=== PATIENT | female | born 1945 | race Caucasian/White ===

== ENCOUNTER → 2021-04-22 14:49 | Outpatient (BNVA) | payer MEDICARE, OTHER, SELFPAY | PROVIDERS: Family Provider Nurse Practitioner; PCP Nurse Practitioner; Visit Provider Family Medicine | DX: R05.9 Cough, unspecified (principal); J90 Pleural effusion, not elsewhere classified; I51.7 Cardiomegaly | CPT/HCPCS: 71046 ==

== ENCOUNTER 2021-04-29 12:28 | Inpatient (IN) | payer MEDICARE, OTHER, SELFPAY ==
[2021-04-29] VITALS (9 sets, daily range): BP systolic 104–110; BP diastolic 61–75; PULSE 66–125; RESP 16–24; TEMP 36.2–37.1; O2SAT 92–96; BMI 19.3
--- NOTE | 2021-04-29 14:39 | W.ED.GENADLT ---
HPI - General Adult General: Chief complaint: Weakness Stated complaint: Loseing weight, cant keep anything down Time Seen by Provider: 04/29/21 14:19 History of Present Illness: Patient is a 76-year-old female with a history of recent Covid pneumonia and superimposed bacterial pneumonia who presents the emergency room at the request patient's primary care provider for concerns of dehydration, decreased p.o. intake worsening generalized weakness after mathieu Covid and pneumonia. Last week, patient was seen on Thursday in clinic and was diagnosed with bacterial pneumonia. Patient received 2 doses of ceftriaxone and completed course of outpatient p.o. antibiotics. Since then, patient has had increasing cough, fatigue and generalized weakness. Patient has not been to tolerate food other than liquid per . Patient has not had the energy to get out of bed to do anything else. Patient has no other focal points including chest pain, shortness of breath, abdominal pain, nausea/vomiting, diarrhea, melena/hematochezia, focal neurological complaints. Patient lost significant weight (5 lbs in the last week) because she could not tolerate PO. Onset: 2 weeks ago, worsening last 3 days Duration: 2 weeks Location:home Severity:moderate/severe Associated symptoms: Reports malaise; Deny chest pain, dyspnea, nausea, rash, palpitations or vomiting Review of Systems Const: Reports: change in weight, fatigue and malaise; Denies: fever(s) or chills Eyes: Denies: change in vision ENMT: Denies: mouth pain Card: Denies: chest pain or palpitations Resp: Reports: non-productive cough; Denies: dyspnea GI: Denies: abdominal pain, nausea, vomiting or diarrhea : Denies: dysuria Musc: Denies: extremity pain Skin/Breast: Denies: rash or new lesions Neuro: Denies: weakness in extremities Psych: Reports: other (Normal mood) Mahesh/Lymph: Denies: easy bruising PFSH ED PFSH: Medical History COVID Pneumonia Social History Smoking and tobacco status: never smoked Alcohol intake: never Substance/Drug Use: never Physical Exam Const: COMMON NORMALS: alert HENMT: COMMON NORMALS: atraumatic HEAD & SCALP: atraumatic MOUTH: moist mucous membranes abnormal Eye: COMMON NORMALS: EOMs intact bilaterally and conjunctivae normal CONJUNCTIVA: Yes conjunctivae normal Neck/C-Spine: COMMON NORMALS: full ROM and supple Resp: COMMON NORMALS: normal respiratory effort OTHER: +coarse breath sounds b/l Cardio: RATE: tachycardic GI: COMMON NORMALS: Soft to palpation and non-tender PALPATION: Yes Soft to palpation Extremity: COMMON NORMALS: full ROM Neuro: SENSORIUM/ORIENTATION: Yes alert MOTOR EXAM: No Abnormal motor strength present and Other motor observations present (no focal motor deficits) Psych: COMMON NORMALS: speech normal SPEECH: Yes normal speech MOOD & AFFECT: Yes euthymic mood Course Vital Signs: Vital signs: Vital Signs Temperature 98.7 F 04/29/21 20:00 Pulse Rate 114 H 04/29/21 20:00 Respiratory Rate 16 04/29/21 20:00 Blood Pressure 106/75 04/29/21 20:00 Pulse Oximetry 95 04/29/21 20:00 MDM - General Adult Medical Decision Making 76-year-old female with history of Covid pneumonia, superimposed bacterial pneumonia presenting to the emergency room with dehydration, weakness, weight loss, inability to tolerate p.o. On exam, patient is noted to be tachycardic to the 120s appears dry on exam. Patient had a white count of 19.8. X-rays consistent with possible pneumonia. Patient received vancomycin, cefepime and azithromycin. Heart rate appears to be improved on reassessment. Patient is noted to be satting at 90 to 93% on room air. Given concerns for dehydration, pneumonia, new leukocytosis, recent weight loss, patient will be admitted to hospital. Disposition: admission Lab Data : 04/29/21 15:05 04/29/21 15:05 Radiology Impressions Chest X-Ray 04/29/21 15:39 IMPRESSION: 1. Bilateral perihilar and right lower lobe pneumonia increased since prior examination. 2. Otherwise negative examination. Chest CTA 04/29/21 16:01 IMPRESSION: 1. Positive for pulmonary embolism as described. 2. Bilateral lower lobe pleural effusions. 3. Bilateral pneumonia in the left upper lobe, right lower lobe, and right perihilar region. 4. Apical pleural thickening right lung. 5. Negative for right heart strain. ADDENDUM: 04/29/21 [id number] Findings were discussed with BRYCE BETTS at 04/29/2021 5:31 PM SALES DEVELOPMENT EXECUTIVE. Laboratory Results WBC 19.8 10^3/uL (4.0-10.0) H 04/29/21 15:05 RBC 4.06 10^6/uL (4.1-5.3) L 04/29/21 15:05 Hgb 12.6 g/dL (11.5-15.3) 04/29/21 15:05 Hct 39.2 % (37.0-47.0) 04/29/21 15:05 MCV 96.6 fl (81-99) 04/29/21 15:05 MCH 31.0 pg (28.0-34.0) 04/29/21 15:05 MCHC 32.1 g/dL (30.0-36.0) 04/29/21 15:05 RDW 14.6 % (12.1-15.1) 04/29/21 15:05 Plt Count 204 10^3/cmm (130-400) 04/29/21 15:05 MPV 9.6 fL (7.4-10.4) 04/29/21 15:05 Neut % (Auto) 89.6 % 04/29/21 15:05 Lymph % (Auto) 2.5 % 04/29/21 15:05 [place] % (Auto) 7.0 % 04/29/21 15:05 Eos % (Auto) 0.1 % 04/29/21 15:05 Baso % (Auto) 0.1 % 04/29/21 15:05 Neut # (Auto) 17.73 10^3/uL (1.8-7.7) H 04/29/21 15:05 Lymph # (Auto) 0.5 10^3/uL (0.8-4.8) L 04/29/21 15:05 [place] # (Auto) 1.4 10^3/uL (0.2-0.9) H 04/29/21 15:05 Eos # (Auto) 0.0 10^3/uL (0.0-0.8) 04/29/21 15:05 Baso # (Auto) 0.0 10^3/uL (0.0-0.1) 04/29/21 15:05 Nucleated RBC % (auto) 0 % 04/29/21 15:05 Nucleated RBCs # 0.0 /100WBC 04/29/21 15:05 Sodium 142 mmol/L (136-145) 04/29/21 15:05 Potassium 3.9 mmol/L (3.5-5.1) 04/29/21 15:05 Chloride 103 mmol/L (98-107) 04/29/21 15:05 Carbon Dioxide 23 mmol/L (22-29) 04/29/21 15:05 Anion Gap 19.9 (5-19) H 04/29/21 15:05 BUN 27 mg/dL (8-23) H 04/29/21 15:05 Creatinine 0.7 mg/dL (0.5-0.9) 04/29/21 15:05 GFR Calculation Not Reportable 04/29/21 15:05 Glucose 98 mg/dL (65-115) 04/29/21 15:05 Calculated Osmolality 299 mOsm/kg (285-295) H 04/29/21 15:05 Calcium 9.4 mg/dL (8.5-10.5) 04/29/21 15:05 Total Bilirubin 1.0 mg/dL (0.15-1.2) 04/29/21 15:05 AST 71 U/L (0-32) H 04/29/21 15:05 ALT 88 U/L (0-33) H 04/29/21 15:05 Alkaline Phosphatase 168 IU/L (35-105) H 04/29/21 15:05 C-Reactive Protein 144.0 mg/L (0.0-4.9) H 04/29/21 15:05 Total Protein 6.6 g/dL (6.6-8.7) 04/29/21 15:05 Albumin 3.6 g/dL (3.5-5.2) 04/29/21 15:05 Globulin 3.0 g/dL (1.3-4.6) 04/29/21 15:05 Lipase 34 U/L (13-60) 04/29/21 15:05 Procalcitonin 0.43 ng/mL (0-0.5) 04/29/21 15:05 Discharge Plan Discharge Patient Disposition: Admitted As Inpatient Admit Provider: Binu Barriga Clinical Impression: Pneumonia, Dehydration Condition: Stable Coding Level of Care Code ED Pathologist for Chg Fwd Exam Comprehensive
[2021-04-29] MEDS: lidocaine 2% viscous 15 ML, aluminum-mag hydrox-simethicon 30 ML, sucralfate oral liq 1 GM PO (15:09)
[2021-04-29] MEDS: sodium chloride 0.9% 1,000 ML 999 ML IV (15:10)
[2021-04-29] MEDS: acetaminophen 500 mg Tablet 1000 MG PO (15:13)
[2021-04-29 15:37] LABS: Basophils % 0.1 %; Eosinophils % 0.1 %; Hematocrit 39.2 % (37.0-47.0); Hemoglobin 12.6 g/dL (11.5-15.3); Lymphocytes # 0.5 10^3/uL (0.8-4.8); Lymphocytes % 2.5 %; Mean Corpuscular HGB Conc 32.1 g/dL (30.0-36.0); Mean Corpuscular Volume 96.6 fl (81-99); Mean Platelet Volume 9.6 fL (7.4-10.4); Monocytes # 1.4 10^3/uL (0.2-0.9); Neutrophils # 17.73 10^3/uL (1.8-7.7); Neutrophils % 89.6 %; Nucleated Red Blood Cells % 0 %; Platelet Count 204 10^3/cmm (130-400); Red Blood Count 4.06 10^6/uL (4.1-5.3); Red Cell Distribution Width 14.6 % (12.1-15.1); White Blood Count 19.8 10^3/uL (4.0-10.0)
--- NOTE | 2021-04-29 15:39 | XRR_ITS ---
PROCEDURE INFORMATION: Exam: XR Chest Exam date and time: 04/29/2021 3:39 PM Age: 76 years old Clinical indication: Condition or disease; Lung condition and disease; Patient HX: --pneumonia for 3 weeks; Additional info: Possible pna TECHNIQUE: Imaging protocol: XR of the chest. Views: 1 view. COMPARISON: CR XR chest 2V* [id number] 04/22/2021 3:05 PM FINDINGS: Lungs: Parenchymal consolidations are noted in the bilateral perihilar region and in the right lower lobe corresponding to pneumonia. These findings have increased since prior examination. Pleural spaces: Unremarkable. No pleural effusion. No pneumothorax. Heart/Mediastinum: Unremarkable. No cardiomegaly. Bones/joints: Unremarkable. XR/XR chest 1V portable [id number] IMPRESSION: 1. Bilateral perihilar and right lower lobe pneumonia increased since prior examination. 2. Otherwise negative examination.
[2021-04-29] MEDS: cefepime 1,000 MG in sodium chloride 0.9% (plus) 50 ML 100 MG IV (15:46)
[2021-04-29 16:01] LABS: Alanine Aminotransferase 88 U/L (0-33); Albumin Level 3.6 g/dL (3.5-5.2); Alkaline Phosphatase 168 IU/L (35-105); Anion Gap 19.9 (5-19); Aspartate Amino Transferase 71 U/L (0-32); Blood Urea Nitrogen 27 mg/dL (8-23); Calcium 9.4 mg/dL (8.5-10.5); Carbon Dioxide 23 mmol/L (22-29); Chloride 103 mmol/L (98-107); Glucose 98 mg/dL (65-115); Lipase 34 U/L (13-60); Osmolality Calculated 299 mOsm/kg (285-295); Potassium 3.9 mmol/L (3.5-5.1); Sodium 142 mmol/L (136-145); Total Protein 6.6 g/dL (6.6-8.7)
--- NOTE | 2021-04-29 16:01 | CTR_ITS ---
PROCEDURE INFORMATION: Exam: CTA Chest With Contrast Exam date and time: 04/29/2021 4:01 PM Age: 76 years old Clinical indication: Shortness of breath; Patient HX: Hypoxia; Additional info: Eval for pe TECHNIQUE: Imaging protocol: Computed tomographic angiography of the chest with contrast. 3D rendering (Not supervised by radiologist): MIP and/or 3D reconstructed images were created by the technologist. Radiation optimization: All CT scans at this facility use at least one of these dose optimization techniques: automated exposure control; mA and/or kV adjustment per patient size (includes targeted exams where dose is matched to clinical indication); or iterative reconstruction. Contrast material: OMNI 350; Contrast volume: 73 ml; Contrast route: INTRAVENOUS (IV); COMPARISON: CR XR chest 1V portable [id number] 04/29/2021 3:49 PM RADIATION DOSE METRICS: Total DLP (mGy-cm): 377.59 FINDINGS: Pulmonary arteries: There is optimal contrast density within the pulmonary arteries. The examination shows multiple small filling defects within the pulmonary arteries corresponding to positive diagnosis for pulmonary embolism. Aorta: Unremarkable. No aortic aneurysm. No aortic dissection. Lungs: Parenchymal densities seen in the left upper lobe, right lower lobe, and right upper lobe these findings are consistent with alveolar pneumonia. Pleural spaces: There is right side apical pleural thickening No pneumothorax. Bilateral lower lobe pleural effusions. effusion. Heart: Negative for right heart strain. No cardiomegaly. No pericardial effusion. Lymph nodes: Unremarkable. No enlarged lymph nodes. Bones/joints: There is osteopenia and osteoarthritis. No acute fracture. Soft tissues: Unremarkable. CT/CT angio chest PE protcl [id number] IMPRESSION: 1. Positive for pulmonary embolism as described. 2. Bilateral lower lobe pleural effusions. 3. Bilateral pneumonia in the left upper lobe, right lower lobe, and right perihilar region. 4. Apical pleural thickening right lung. 5. Negative for right heart strain.
[2021-04-29 16:07] LABS: Procalcitonin 0.43 ng/mL (0-0.5)
[2021-04-29] MEDS: azithromycin 500 MG in sodium chloride 0.9% 250 ML 250 MG IV (16:07)
[2021-04-29] MEDS: vancomycin 1,000 MG in sodium chloride 0.9% 250 ML 250 MG IV (16:34)
[2021-04-29] MEDS: iohexol 350 mg/mL 100 mL Btl IV (16:49)
--- NOTE | 2021-04-29 18:13 | P.HP_ITS ---
Providers/Chief Complaint Admitting Physician: Binu Barriga Primary Care Provider: ZACK Sanders Chief Complaint: Loseing weight, cant keep anything down History of Present Illness Pleasant 76-year-old lady is referred to the hospital by her primary provider after not improving from pneumonia despite outpatient course of antibiotic treatment with cefdinir. She has been still short of breath, fatigued, with poor oral intake. Reports she was tested for COVID-19 at that onset of her illness which was then negative. On presentation here she was found tachycardic, heart rate up to 120s. Denies chest pain or pressure. Denies significant cough. No hemoptysis. Noted leukocytosis 19.8 with neutrophilic predominance. Afebrile. Mild elevation AST, ALT 71, 88 respectively. Alk phos mildly elevated at 168. CRP abnormal at 244. Chest x-ray was obtained followed by CTA with finding of bilateral small multiple PEs bilateral lower lobe pleural effusions, bilateral pneumonia and left upper lobe, right lower lobe and right perihilar region. Apical pleural thickening at right lung. No appearance of right heart strain. Review of Systems Const: Reports: change in appetite, fatigue and malaise; Denies: fever(s) Eyes: Denies: change in vision or eye redness ENMT: Denies: throat pain, oral sores or ear or mastoid pain Card: Denies: chest pain, edema, pre-syncope or dyspnea on exertion Resp: Reports: dyspnea; Denies: productive cough, change in phlegm color or hemoptysis GI: Reports: nausea; Denies: abdominal pain, vomiting, diarrhea, constipation, hematochezia or melena : Denies: flank pain, urinary frequency or hematuria Musc: Denies: back pain, joint swelling or joint redness Skin/Breast: Denies: rash, sores or new lesions Neuro: Denies: headache(s), numbness in extremities, weakness in extremities, dizziness, confusion or seizure-like activity Endo: Denies: polydipsia Mahesh/Lymph: Denies: easy bleeding All/Imm: Denies: throat swelling Medications/Allergies Home Medications Medication Instructions Recorded Confirmed Last Taken Type naproxen 220 mg-pseudoephedrine 1 tab PO BID 03/11/21 04/29/21 Unknown History 120 mg ER tablet, extend release,12 hr (Aleve-D Sinus and Cold) cefdinir 300 mg capsule 300 mg PO BID #28 cap 04/22/21 04/29/21 04/28/21 Rx Allergies Allergy/AdvReac Type Severity Reaction Status Date / Time No Known Allergies Allergy Verified 04/29/21 14:37 PFSH Acute PFSH: Medical History COVID Pneumonia Social History Smoking and tobacco status: never smoked Alcohol intake: never Substance/Drug Use: never Vitals/I&O/Wt Last Vital Signs Temp 97.2 F L 04/29/21 12:46 Pulse 77 04/29/21 17:57 Resp 18 04/29/21 17:00 BP 110/71 04/29/21 17:57 Pulse Ox 96 04/29/21 17:57 Weight last 48 hrs Weight 52.73 kg Physical Exam Const: COMMON NORMALS: no acute distress and patient oriented x3 HENMT: COMMON NORMALS: oropharynx normal Neck/C-Spine: COMMON NORMALS: no JVD Resp: COMMON NORMALS: normal respiratory effort and clear to auscultation bilaterally AUSCULTATION: clear to auscultation bilaterally Cardio: COMMON NORMALS: no JVD, regular rhythm, S1 normal heart sound present, S2 normal heart sound present and No murmurs present (Cardio) RHYTHM: regular rhythm HEART SOUNDS: S1 normal heart sound present and S2 normal heart sound present GI: COMMON NORMALS: Normal to inspection, nondistended, normoactive bowel sounds present, Soft to palpation and non-tender PALPATION: Yes Soft to palpation Extremity: COMMON NORMALS: no joint enlargement and no pedal edema Neuro: COMMON NORMALS: patient oriented x3 and moves all extremities Skin: COMMON NORMALS: no rashes or lesions noted GENERAL SKIN EXAM: no yuniel hes or lesions noted Data : 04/29/21 15:05 04/29/21 15:05 A&P Assessment and plan (1) Pneumonia: With lack of response to outpatient treatment with cefdinir. Persistent pneumonia noted in left upper lobe, right lower lobe and right perihilar region. Obtain sputum culture, urine bacterial antigens. MRSA PCR. Viral PCR pending for COVID-19, influenza. Blood cultures requested. Continue with broad coverage with cefepime, vancomycin. Follow-up microbiologic studies. Reports fatigue, functional decline. 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 PT assessment. Status: Acute (2) Pulmonary emboli: Started on therapeutic Lovenox. Continue. Status: Acute (3) UTI (urinary tract infection): Fatigue may partially be explained by UTI as well, 10-15 WBCs. 0-4 squamous epithelial cells. Follow-up urine culture. Continue cefepime. Status: Acute Plan Poor oral intake: Nausea, possibly secondary to pneumonia, follow-up also COVID- 19 PCR. She appears to also been taking naproxen. Discontinue. Start PPI. Encourage oral intake. Regular diet. Check TSH. Discussed with her and her . Attestations Medical Necessity Statement*: Place in observation for assessment management of pneumonia not responsive to outpatient treatment, PE. Coding Level of Care Code Acute Combine Driver for [place] Wei Diagnoses Pneumonia J18.9 Pulmonary emboli I26.99 UTI (urinary tract infection) N39.0
[2021-04-29 18:19] LABS: Blood Urine 2+ (Negative); Glucose Urine UA Norm (Normal); Ketones Urine 2+ (Negative); Nitrate Urine Negative (Negative); Protein Urine 1+ (Negative); Specific Gravity, Urine 1.015 (1.005-1.030); Urine Appearance Clear (CLEAR); Urine Color Yellow (Yellow); pH Urine 5 (5-7)
[2021-04-29 18:20] LABS: Add Urine Culture? No; Add Urine Microscopic? YES; Bacteria Urine TRACE /hpf; Bilirubin Urine Neg (Negative); Hyaline Casts Urine 0-4 /lpf; Leukocyte Esterase Urine Negative (Negative); Mucus Urine TRACE /hpf; RBC Urine RARE /hpf (0-2); Squamous Epithelial Cell Urine 0-4 /hpf (0-5); Urobilinogen Urine Norm (Negative)
[2021-04-29 19:00] LABS: Adenovirus Not Detected (NOT DETECT); Chlamydia Pneumoniae Not Detected (NOT DETECT); Coronavirus 229E,HKU1,NL63,OC4 Not Detected (NOT DETECT); Human Metapneumovirus Not Detected (NOT DETECT); Human Rhinovirus/Enterovirus Not Detected (NOT DETECT); Influenza A Not Detected (NOT DETECT); Influenza A H1 Not Detected (NOT DETECT); Influenza A H1-2009 Not Detected (NOT DETECT); Influenza A H3 Not Detected (NOT DETECT); Influenza B Not Detected (NOT DETECT); Mycoplasma Pneumoniae Not Detected (NOT DETECT); Parainfluenza Virus Type 1 Not Detected (NOT DETECT); Parainfluenza Virus Type 2 Not Detected (NOT DETECT); Parainfluenza Virus Type 3 Not Detected (NOT DETECT); Parainfluenza Virus Type 4 Not Detected (NOT DETECT); Respiratory Syncytial Virus A Not Detected (NOT DETECT); Respiratory Syncytial Virus B Not Detected (NOT DETECT); SARS-COV-2 Not Detected (NOT DETECT)
[2021-04-29] MEDS: enoxaparin 60 mg/0.6 mL Syringe 50 MG SUBCUT (19:10)
[2021-04-29] MEDS: sodium chloride 0.9% 1,000 ML 100 ML IV (19:10)
[2021-04-29 21:47] LABS: Influenza A Not Detected (NOT DETECT); Influenza A H1 Not Detected (NOT DETECT); Influenza A H1-2009 Not Detected (NOT DETECT); Influenza A H3 Not Detected (NOT DETECT); Influenza B Not Detected (NOT DETECT); Results from Genmark
[2021-04-30] VITALS (7 sets, daily range): BP systolic 100–134; BP diastolic 66–90; PULSE 114–128; RESP 16–20; TEMP 36.4–37.1; O2SAT 90–97
[2021-04-30] MEDS: sodium chloride 0.9% 1,000 ML 100 ML IV ×2 (04:53→17:41)
[2021-04-30] MEDS: cefepime 1,000 MG in sodium chloride 0.9% (plus) 50 ML 100 MG IV ×2 (05:00→17:42)
[2021-04-30] MEDS: enoxaparin 60 mg/0.6 mL Syringe 50 MG SUBCUT ×2 (05:00→17:41)
[2021-04-30 05:15] LABS: Basophils % 0.1 %; Hematocrit 37.9 % (37.0-47.0); Hemoglobin 11.8 g/dL (11.5-15.3); Lymphocytes # 0.4 10^3/uL (0.8-4.8); Lymphocytes % 2.5 %; Mean Corpuscular HGB Conc 31.1 g/dL (30.0-36.0); Mean Corpuscular Hemoglobin 30.5 pg (28.0-34.0); Mean Corpuscular Volume 97.9 fl (81-99); Mean Platelet Volume 9.5 fL (7.4-10.4); Monocytes # 1.4 10^3/uL (0.2-0.9); Monocytes % 8.4 %; Neutrophils # 14.94 10^3/uL (1.8-7.7); Neutrophils % 88.4 %; Nucleated Red Blood Cells % 0 %; Platelet Count 217 10^3/cmm (130-400); Red Blood Count 3.87 10^6/uL (4.1-5.3); Red Cell Distribution Width 14.7 % (12.1-15.1); White Blood Count 16.9 10^3/uL (4.0-10.0)
[2021-04-30 05:48] LABS: Anion Gap 18.6 (5-19); Blood Urea Nitrogen 22 mg/dL (8-23); Calcium 8.5 mg/dL (8.5-10.5); Carbon Dioxide 18 mmol/L (22-29); Chloride 110 mmol/L (98-107); Glucose 134 mg/dL (65-115); Osmolality Calculated 301 mOsm/kg (285-295); Potassium 3.6 mmol/L (3.5-5.1); Sodium 143 mmol/L (136-145); Thyroid Stimulating Hormone 1.01 uIU/mL (0.27-4.20)
--- NOTE | 2021-04-30 08:43 | ECG_ITS ---
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 Measurements Intervals [place] Rate: 126 P: 42 CA: 141 QRS: -19 QRSD: 129 T: 76 QT: 324 QTc: 470 Interpretive Statements SINUS TACHYCARDIA LEFT BUNDLE BRANCH BLOCK [120+ ms QRS DURATION, 80+ ms Q/S IN V1/V2, 85+ ms R IN I/aVL/V5/V6] No previous ECG available for comparison Electronically Signed On 05-01-2021 5:51:49 EXECUTIVE ASSISTANT by Hannah Salas M.D. [id number]
[2021-04-30] MEDS: pantoprazole DR 40 mg Tablet PO (09:56)
--- NOTE | 2021-04-30 10:42 | CT_ITS ---
WS: [id number] CT HEAD TECHNIQUE: Noncontrast CT of the head obtained from the skullbase to the vertex. CLINICAL INFORMATION: AMS, on anticoagulation COMPARISON: None. DLP: 1406.[address] scans at [facility] use at least one of these dose optimization techniques: automated e xposure control; mA and/or kV adjustment per patient size (includes targeted exams where dose is matc hed to clinical indication); or iterative reconstruction. FINDINGS: No evidence of intracranial hemorrhage or mass effect. Ventricular system and basal cisterns are nicholas nt. Moderate small vessel changes with moderate parenchymal volume loss. No extra-axial fluid collect ions. No evidence of mass or mass effect. Normal valente-white differentiation. Paranasal sinuses and mastoid air cells are well aerated. .Normal visualized soft tissues. CT/CT head wo con* [id number] IMPRESSION: 1. No evidence of intracranial hemorrhage or mass effect. 2. Moderate small vessel changes. Moderate parenchymal volume loss. 3. No acute intracranial findings.
[2021-04-30] MEDS: vancomycin 1,000 MG in sodium chloride 0.9% 250 ML 250 MG IV (16:34)
--- NOTE | 2021-04-30 19:22 | PC.NURSE ---
i reported low temp 97.5 and high pulse 123 to nurse
[2021-04-30] MEDS: acetaminophen 325 mg Tablet 650 MG PO (19:58)
--- NOTE | 2021-04-30 20:36 | PM.PN ---
Subjective Subjective: She states she has been feeling grumpy today. She has been wanting to go home. Her feels she has not been entirely acting like herself. Vitals/I&O/Wt Last Vital Signs Temp 97.5 F L 04/30/21 19:22 Pulse 123 H 04/30/21 19:22 Resp 16 04/30/21 19:22 BP 118/84 04/30/21 19:22 Pulse Ox 97 04/30/21 19:22 04/30/21 04/30/21 04/30/21 06:59 14:59 22:59 Intake Total 1021.667 / 8298.559 8851 / 1600 970 / 2570 Output Total 100 / 100 Balance 1021.667 / 8120.972 9729 / 1600 870 / 2470 Weight last 48 hrs Weight 54.159 kg Weight 52.73 kg Weight 52.73 kg Physical Exam Narrative: at bedside. Const: COMMON NORMALS: no acute distress and patient oriented x3 HENMT: COMMON NORMALS: oropharynx normal Neck/C-Spine: COMMON NORMALS: no JVD Resp: COMMON NORMALS: normal respiratory effort and clear to auscultation bilaterally AUSCULTATION: clear to auscultation bilaterally Cardio: COMMON NORMALS: no JVD, regular rhythm, S1 normal heart sound present, S2 normal heart sound present and No murmurs present (Cardio) RHYTHM: regular rhythm HEART SOUNDS: S1 normal heart sound present and S2 normal heart sound present GI: COMMON NORMALS: Normal to inspection, nondistended, normoactive bowel sounds present, Soft to palpation and non-tender PALPATION: Yes Soft to palpation Extremity: COMMON NORMALS: no joint enlargement and no pedal edema Neuro: COMMON NORMALS: patient oriented x3 and moves all extremities Skin: COMMON NORMALS: no rashes or lesions noted GENERAL SKIN EXAM: no rashes or lesions noted Data : 04/30/21 04:08 04/30/21 04:08 Micro: Microbiology 04/29/21 20:00 Blood Culture - Preliminary Blood NEGATIVE TO DATE 04/29/21 19:58 Blood Culture - Preliminary Blood NEGATIVE TO DATE 04/29/21 19:20 MRSA Culture - Final Nose 04/29/21 17:56 Legionella Urinary Antigen - Final Urine,Voided Bacterial Antigens - Final A&P Assessment and plan (1) Acute encephalopathy: noted she was not entirely acting like herself today. Noted episode of lethargy today. CT head performed, no bleeding. UA suggestive of possible UTI. Requested urine culture which for some reason did not reflex. Continue empiric antibiotics for pneumonia, UTI. Status: Acute (2) Pneumonia: Continue cefepime, vancomycin. Urine bacterial antigens including Legionella, MRSA PCR negative. Obtain sputum culture Viral PCR negative for COVID-19, influenza. Blood cultures requested. Continue with broad coverage with cefepime, vancomycin. Follow-up microbiologic studies. Reports fatigue, functional decline. 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 PT assessment. Status: Acute (3) Pulmonary emboli: Continue Lovenox. Transition to p.o. anticoagulation at discharge. Status: Acute (4) UTI (urinary tract infection): Requested urine culture which did not reflex from UA. Continue cefepime. Status: Acute Plan Poor oral intake: Nausea, possibly secondary to pneumonia, follow-up also COVID-19 PCR. She appears to also been taking naproxen. Discontinue. Start PPI. Encourage oral intake. Regular diet. Check TSH. Discussed with her and her at bedside Attestations Medical Necessity Statement*: Continue admission for assessment management of acute encephalopathy, pneumonia, UTI. Coding Level of Care Code Acute Statement Processor for [place] Wei Diagnoses Pneumonia J18.9 Pulmonary emboli I26.99 UTI (urinary tract infection) N39.0 Acute encephalopathy G93.40
[2021-05-01] VITALS (10 sets, daily range): BP systolic 112–126; BP diastolic 67–84; PULSE 115–131; RESP 13–24; TEMP 36.4–36.6; O2SAT 92–98
--- NOTE | 2021-05-01 00:23 | PC.NURSE ---
i reported high pulse 131 to nurse
--- NOTE | 2021-05-01 04:15 | PC.NURSE ---
i reported high pulse 121 to nurse
[2021-05-01 05:19] LABS: Basophils % 0.1 %; Hematocrit 37.7 % (37.0-47.0); Hemoglobin 11.8 g/dL (11.5-15.3); Lymphocytes # 0.7 10^3/uL (0.8-4.8); Lymphocytes % 3.8 %; Mean Corpuscular HGB Conc 31.3 g/dL (30.0-36.0); Mean Corpuscular Hemoglobin 30.8 pg (28.0-34.0); Mean Corpuscular Volume 98.4 fl (81-99); Mean Platelet Volume 9.7 fL (7.4-10.4); Monocytes # 1.5 10^3/uL (0.2-0.9); Monocytes % 8.3 %; Neutrophils # 15.86 10^3/uL (1.8-7.7); Neutrophils % 87.2 %; Nucleated Red Blood Cells % 0 %; Platelet Count 222 10^3/cmm (130-400); Red Blood Count 3.83 10^6/uL (4.1-5.3); Red Cell Distribution Width 15.1 % (12.1-15.1); White Blood Count 18.2 10^3/uL (4.0-10.0)
[2021-05-01] MEDS: cefepime 1,000 MG in sodium chloride 0.9% (plus) 50 ML 100 MG IV ×2 (05:37→18:02)
[2021-05-01] MEDS: enoxaparin 60 mg/0.6 mL Syringe 50 MG SUBCUT ×2 (05:38→18:02)
[2021-05-01 05:48] LABS: Alanine Aminotransferase 57 U/L (0-33); Albumin Level 3.1 g/dL (3.5-5.2); Alkaline Phosphatase 129 IU/L (35-105); Anion Gap 21.2 (5-19); Aspartate Amino Transferase 34 U/L (0-32); Blood Urea Nitrogen 30 mg/dL (8-23); Calcium 8.5 mg/dL (8.5-10.5); Carbon Dioxide 16 mmol/L (22-29); Chloride 112 mmol/L (98-107); Globulin 3.3 g/dL (1.3-4.6); Glucose 128 mg/dL (65-115); Osmolality Calculated 308 mOsm/kg (285-295); Potassium 4.2 mmol/L (3.5-5.1); Sodium 145 mmol/L (136-145); Total Bilirubin 0.7 mg/dL (0.15-1.2); Total Protein 6.4 g/dL (6.6-8.7)
--- NOTE | 2021-05-01 09:38 | ECG_ITS ---
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 Measurements Intervals [place] Rate: 126 P: 54 SD: 138 QRS: -8 QRSD: 132 T: 88 QT: 322 QTc: 466 Interpretive Statements SINUS TACHYCARDIA LEFT BUNDLE BRANCH BLOCK [120+ ms QRS DURATION, 80+ ms Q/S IN V1/V2, 85+ ms R IN I/aVL/V5/V6] Compared to ECG 04/30/2021 09:08:34 No significant changes Electronically Signed On 05-01-2021 16:05:05 AIR/OCEAN EXPORT CLERK by Daryl Sosa M.D. [id number]
--- NOTE | 2021-05-01 10:06 | PC.CHAP ---
Pastoral Care Encounter/Spiritual Assessment Type of Contact [] Declined cement handler visit [] Patient/Family/Request visit [] Outpatient visit [] Follow-up visit [] Physician referral [] Code/Alert [x] Routine visit [] Staff referral [] Actively dying [] Patient sleeping [] Family support [] [] Out of room [] Palliative care [] [] Receiving care in room [] Pre-surgical visit [] Trauma [] Long length of stay [] ICU visit [] Other: Relational/Emotional Strength [] Patient feels connected with others/family/visitors/staff [] Distress [] Loneliness/isolation [] Abandonment Spirituality of Patient [] Person of Ragini [] Attends Restorationist of their Ragini [] Believes in Prayer [] Reads Bible or Rastafari materials [] There are Spiritual issues to be addressed Manager Helpdesk Interventions [] Prayer [] Active listening [] Non-anxious presence [] Spiritual/emotional support [] Crisis/trauma care [] Spiritual counseling [] Bereavement support [] Provided bereavement packet [] Provided Bible/devotional materials [] Provided toy/stuffed animal, coloring book to patient or family member [] Provided Communion [] Anointing/[place] [] Salvation [] Completed spiritual assessment [] Other: Impact on Illness or Injury [] Angry [] Fearful [] Anxious [] Often cries [] Exhaustion [] Unable to work [] Unable to attend samaritan [] Unable to walk/stand [] Unable to read [] Unable to drive [] Unable to eat/drink [] Unable to sleep [] Unable to be with family [] Patient intubated [] Other: Summary Time spent with patient
[2021-05-01] MEDS: sodium chloride 0.9% 1,000 ML 100 ML IV ×2 (11:10→21:36)
[2021-05-01 16:45] LABS: Vancomycin Trough 9.1 ug/mL (10-15)
[2021-05-01] MEDS: vancomycin 1,000 MG in sodium chloride 0.9% 250 ML 250 MG IV (17:06)
--- NOTE | 2021-05-01 19:10 | PC.NURSE ---
i reported high pulse 123 and high reps 24 to nurse
[2021-05-01] MEDS: acetaminophen 325 mg Tablet 650 MG PO (21:30)
--- NOTE | 2021-05-01 21:46 | P.PN_ITS ---
Subjective Subjective: Overall she is not feeling very well, she is coughing, feels congested. Tachypnea and tachycardia are noted. still finds her to have confusion compared to baseline. Noted possible aspiration by her RN. Vitals/I&O/Wt Last Vital Signs Temp 97.9 F 05/01/21 19:09 Pulse 123 H 05/01/21 19:09 Resp 24 H 05/01/21 19:09 BP 121/80 05/01/21 19:09 Pulse Ox 98 05/01/21 19:09 05/01/21 05/01/21 05/01/21 06:59 14:59 22:59 Intake Total 1050 / 3620 260 / 260 1300 / 1560 Output Total 240 / 340 80 / 80 Balance 810 / 3280 260 / 260 1220 / 1480 Weight last 48 hrs Weight 59.738 kg Weight 54.159 kg Physical Exam Narrative: at bedside. Const: COMMON NORMALS: no acute distress and patient oriented x3 HENMT: COMMON NORMALS: oropharynx normal Neck/C-Spine: COMMON NORMALS: no JVD Resp: COMMON NORMALS: normal respiratory effort and clear to auscultation bilaterally AUSCULTATION: clear to auscultation bilaterally Cardio: COMMON NORMALS: no JVD, regular rhythm, S1 normal heart sound present, S2 normal heart sound present and No murmurs present (Cardio) RHYTHM: regular rhythm HEART SOUNDS: S1 normal heart sound present and S2 normal heart sound present GI: COMMON NORMALS: Normal to inspection, nondistended, normoactive bowel sounds present, Soft to palpation and non-tender PALPATION: Yes Soft to palpation Extremity: COMMON NORMALS: no joint enlargement and no pedal edema Neuro: COMMON NORMALS: patient oriented x3 and moves all extremities Skin: COMMON NORMALS: no rashes or lesions noted GENERAL SKIN EXAM: no rashes or lesions noted Data : 05/01/21 04:40 05/01/21 04:40 Micro: Microbiology 04/29/21 17:56 Urine Culture - Preliminary Urine,Clean Catch 04/29/21 20:00 Blood Culture - Preliminary Blood NEGATIVE TO DATE 04/29/21 19:58 Blood Culture - Preliminary Blood NEGATIVE TO DATE A&P Assessment and plan (1) Acute encephalopathy: Acute metabolic encephalopathy secondary to pneumonia, UTI, aspiration. noted she was not entirely acting like herself today. Noted episode of lethargy today. CT head performed, no bleeding. UA suggestive of possible UTI. Requested urine culture which for some reason did not reflex. Treat underlying conditions. Continue empiric antibiotics for pneumonia, UTI. Reorient. PT Status: Acute (2) Pneumonia: Also with possible aspiration, changed empirically to dysphagia diet with nectar thick liquids. Requested speech therapy evaluation. Continue cefepime, vancomycin. Urine bacterial antigens including Legionella, MRSA PCR negative. Obtain sputum culture Viral PCR negative for COVID-19, influenza. Blood cultures requested. Reports fatigue, functional decline. 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 PT. Status: Acute (3) Pulmonary emboli: Continue Lovenox. Transition to p.o. anticoagulation at discharge. Status: Acute (4) UTI (urinary tract infection): Requested urine culture which did not reflex from UA. Pending. Continue cefepime. Status: Acute Plan Poor oral intake: DC IVF. Nausea better. Negative COVID-19 PCR. She appears to also been taking naproxen. Discontinue. Continue PPI. Encourage oral intake. Normal TSH. Discussed with her and her at bedside Attestations Medical Necessity Statement*: Continue admission for assessment management of acute encephalopathy, UTI, pneumonia, aspiration. 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
--- NOTE | 2021-05-01 23:45 | PC.NURSE ---
i reported high puse 118 and high reps 20 to nurse
[2021-05-02 05:06] LABS: Basophils % 0.1 %; Hematocrit 42.1 % (37.0-47.0); Hemoglobin 12.3 g/dL (11.5-15.3); Lymphocytes # 0.6 10^3/uL (0.8-4.8); Lymphocytes % 3.1 %; Mean Corpuscular HGB Conc 29.2 g/dL (30.0-36.0); Mean Corpuscular Hemoglobin 30.4 pg (28.0-34.0); Mean Corpuscular Volume 104.2 fl (81-99); Mean Platelet Volume 9.8 fL (7.4-10.4); Monocytes # 1.6 10^3/uL (0.2-0.9); Monocytes % 7.8 %; Neutrophils # 18.08 10^3/uL (1.8-7.7); Neutrophils % 88.3 %; Nucleated Red Blood Cells % 0 %; Platelet Count 258 10^3/cmm (130-400); Red Blood Count 4.04 10^6/uL (4.1-5.3); Red Cell Distribution Width 15.3 % (12.1-15.1); White Blood Count 20.5 10^3/uL (4.0-10.0)
[2021-05-02 05:24] LABS: Alanine Aminotransferase 58 U/L (0-33); Albumin Level 3.3 g/dL (3.5-5.2); Alkaline Phosphatase 127 IU/L (35-105); Anion Gap 21.3 (5-19); Aspartate Amino Transferase 49 U/L (0-32); Blood Urea Nitrogen 38 mg/dL (8-23); Calcium 7.9 mg/dL (8.5-10.5); Carbon Dioxide 13 mmol/L (22-29); Chloride 115 mmol/L (98-107); Globulin 2.9 g/dL (1.3-4.6); Glucose 112 mg/dL (65-115); Osmolality Calculated 310 mOsm/kg (285-295); Potassium 4.3 mmol/L (3.5-5.1); Sodium 145 mmol/L (136-145); Total Bilirubin 0.9 mg/dL (0.15-1.2); Total Protein 6.2 g/dL (6.6-8.7)
[2021-05-02] MEDS: enoxaparin 60 mg/0.6 mL Syringe 50 MG SUBCUT ×2 (05:34→16:59)
[2021-05-02] MEDS: cefepime 1,000 MG in sodium chloride 0.9% (plus) 50 ML 100 MG IV ×2 (05:34→14:11)
[2021-05-02 07:13] VITALS: BP 94/64; PULSE 129; RESP 17; TEMP 36.4; O2SAT 93
--- NOTE | 2021-05-02 08:15 | XR_ITS ---
WS: [id number] Portable AP upright chest, 05/02/2021 Clinical Data: possible aspiration, pleural effusions Comparison: Portable chest, 04/29/2021. Findings: The diffuse bilateral pulmonary opacities show little change on the right but slight increa se in the left upper lobe. The heart remains enlarged. No nodules or masses are seen. There may be sm all pleural effusions. XR/XR chest 1V portable [id number] Impression: 1. Diffuse bilateral pulmonary opacities with an increase in the left upper lob e opacity. 2. Cardiomegaly and small pleural effusions.
[2021-05-02] MEDS: pantoprazole DR 40 mg Tablet PO (08:18)
--- NOTE | 2021-05-02 08:18 | CT_ITS ---
WS: [id number] CT ABDOMEN PELVIS TECHNIQUE: Noncontrast CT of the abdomen and pelvis with coronal and sagittal reformatted images. CLINICAL INFORMATION: UTI, sepsis COMPARISON: None. DLP: 605.[address] scans at [facility] use at least one of these dose optimization techniques: automated e xposure control; mA and/or kV adjustment per patient size (includes targeted exams where dose is matc hed to clinical indication); or iterative reconstruction. FINDINGS: Images degraded by motion and breathing artifact. Cardiomegaly. Small bilateral pleural effusions with compressive atelectasis in the lung bases. Patch y infiltrates and subsegmental atelectasis in the RIGHT middle lobe. Noncontrast liver is normal. Vicarious excretion of contrast in the gallbladder from prior contrast e nhanced studies. Normal visualized noncontrast pancreas. Noncontrast spleen appears normal. Small eso phageal hiatal hernia. Adrenal glands are normal. No hydronephrosis in either kidney. Normal caliber abdominal aorta. Aortic calcification. Sigmoid diverticulosis. No evidence of acute diverticulitis. No evidence of hig h-grade small or large bowel obstruction. No periaortic or pelvic lymphadenopathy. No inguinal lympha denopathy. Diffuse body wall anasarca. CT/CT kidney stone [id number] IMPRESSION: 1. Small bilateral pleural effusions with compressive atelectasis in the lung bases. Subsegmental atelectasis with partial consolidation RIGHT middle lobe. 2. Cardiomegaly. 3. Small esophageal hiatal hernia. 4. No hydronephrosis in either kidney. 5. Bladder appears normal. 6. Vicarious excretion of contrast in the gallbladder from recent contrast enh anced studies. 7. Diverticulosis. No evidence of acute diverticulitis. 8. Diffuse body wall anasarca. 9. No evidence of high-grade small or large bowel obstruction. Air-fluid level in the stomach.
[2021-05-02 12:00] VITALS: BP 116/78; PULSE 122; RESP 18; TEMP 36.7; O2SAT 96
[2021-05-02] MEDS: ondansetron 2 mg/ML SDV 2 mL 4 MG IVP (14:11)
[2021-05-02 16:00] VITALS: BP 101/64; PULSE 132; O2SAT 95
[2021-05-02] MEDS: vancomycin 1,000 MG in sodium chloride 0.9% 250 ML 250 MG IV (16:51)
--- NOTE | 2021-05-02 16:55 | PM.PN ---
Subjective Subjective: She does not really want to be in hospital, does not also feel much better. Not noted today to be coughing with food or drink. Having cough. Denies abdominal pain or discomfort. Vitals/I&O/Wt Last Vital Signs Temp 98.0 F 05/02/21 12:00 Pulse 122 H 05/02/21 12:00 Resp 18 05/02/21 12:00 BP 116/78 05/02/21 12:00 Pulse Ox 96 05/02/21 12:00 05/02/21 05/02/21 05/02/21 06:59 14:59 22:59 Intake Total 50 / 1726.667 270 / 270 Balance 50 / 1646.667 270 / 270 Weight last 48 hrs Weight 59.738 kg Physical Exam Narrative: and daughter at bedside. Const: GENERAL APPEARANCE: cooperative OTHER: Weak, but able to cough. HENMT: COMMON NORMALS: oropharynx normal Neck/C-Spine: COMMON NORMALS: no JVD Resp: COMMON NORMALS: normal respiratory effort and clear to auscultation bilaterally AUSCULTATION: clear to auscultation bilaterally Cardio: COMMON NORMALS: no JVD, regular rhythm, S1 normal heart sound present, S2 normal heart sound present and No murmurs present (Cardio) RATE: tachycardic RHYTHM: regular rhythm HEART SOUNDS: S1 normal heart sound present and S2 normal heart sound present GI: COMMON NORMALS: Normal to inspection, nondistended, normoactive bowel sounds present, Soft to palpation and non-tender PALPATION: Yes Soft to palpation Extremity: COMMON NORMALS: no joint enlargement and no pedal edema Neuro: COMMON NORMALS: moves all extremities Skin: COMMON NORMALS: no rashes or lesions noted GENERAL SKIN EXAM: no rashes or lesions noted Data : 05/02/21 04:21 05/02/21 04:21 Micro: Microbiology 04/29/21 17:56 Urine Culture - Final Urine,Clean Catch A&P Assessment and plan (1) Pneumonia: Sepsis with worsening leukocytosis, persistent tachycardia. Some tachycardia may be also contributed from PE, however, WBC count has been increasing, and she overall has not improved. Intermittent tachypnea, as well as some alteration in mental status. Noted worsening acidosis, anion gap up to 21.3. Bicarb 13. We will check lactic acid. Oxygenation so far has been maintained on 2 L nasal cannula. Possible aspiration, appreciated speech therapy follow-up, continue dysphagia diet with nectar thick liquids. Given persistent findings that are concerning for sepsis with initial UA suggestive of UTI additional assessment by CT abdomen pelvis did not find obstructive uropathy. Noted subsegmental atelectasis with partial consolidation right middle lobe. Cardiomegaly, small esophageal hiatal hernia. Vicarious excretion of contrast in gallbladder from recent contrast-enhanced studies. Diverticulosis. Diffuse body wall anasarca. No evidence of high-grade small or large bowel obstruction. Air-fluid level in the stomach. Chest x-ray with worsening infiltrate also in the left upper lobe. Initially cefepime dose increased to every 8 hours. Given lack of so far even partial response to cefepime we will switch to Primaxin. Continue vancomycin. Will add empiric coverage with caspofungin. Urine bacterial antigens including Legionella, MRSA PCR negative. Requested sputum culture Viral PCR negative for COVID-19, influenza. Blood cultures so far negative. Recently fatigue, functional decline. 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 PT. Status: Acute (2) Acute encephalopathy: Acute metabolic encephalopathy secondary to pneumonia, UTI, aspiration. As above. Reorient. Family has been here for her as well. Reorient. PT Status: Acute (3) Pulmonary emboli: Continue Lovenox. Transition to p.o. anticoagulation at discharge. Status: Acute (4) UTI (urinary tract infection): So far no growth on urine culture. No obstructive uropathy noted on CT. Antibiotic changed to Primaxin. Status: Acute Plan Poor oral intake: P.o. intake is tolerating. IVF stopped. Nausea better. Negative COVID-19 PCR. She appears to also been taking naproxen. Discontinue. Continue PPI. Encourage oral intake. Normal TSH. Discussed with her and her and daughter at bedside Attestations Medical Necessity Statement*: Continue admission for assessment management of sepsis, pneumonia, possible aspiration, PE, acute encephalopathy. 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
[2021-05-02 18:14] LABS: Lactate (Lactic Acid level) 2.3 mmol/L (0.5-2.2)
[2021-05-02] MEDS: acetaminophen 325 mg Tablet 650 MG PO (18:35)
[2021-05-02 19:35] VITALS: BP 99/68; PULSE 119; RESP 17; TEMP 36.7; O2SAT 94
--- NOTE | 2021-05-02 19:35 | PC.NURSE ---
i reported high pulse 114 to nurse
[2021-05-03] VITALS (8 sets, daily range): BP systolic 96–125; BP diastolic 61–81; PULSE 101–121; RESP 16–24; TEMP 36.4–36.7; O2SAT 90–96
--- NOTE | 2021-05-03 00:13 | PC.NURSE ---
i reported high pulse 116 to nurse
--- NOTE | 2021-05-03 03:40 | PC.NURSE ---
i reported high pulse 116 to nurse
[2021-05-03] MEDS: ondansetron 2 mg/ML SDV 2 mL 4 MG IVP (03:53)
[2021-05-03 05:11] LABS: Basophils % 0.1 %; Hematocrit 38.5 % (37.0-47.0); Hemoglobin 12.1 g/dL (11.5-15.3); Lymphocytes # 0.6 10^3/uL (0.8-4.8); Lymphocytes % 3.2 %; Mean Corpuscular HGB Conc 31.4 g/dL (30.0-36.0); Mean Corpuscular Hemoglobin 31.2 pg (28.0-34.0); Mean Corpuscular Volume 99.2 fl (81-99); Mean Platelet Volume 10.6 fL (7.4-10.4); Monocytes # 1.2 10^3/uL (0.2-0.9); Neutrophils # 17.77 10^3/uL (1.8-7.7); Neutrophils % 89.6 %; Nucleated Red Blood Cells # 0.1 /100WBC; Nucleated Red Blood Cells % 0.3 %; Platelet Count 222 10^3/cmm (130-400); Red Blood Count 3.88 10^6/uL (4.1-5.3); Red Cell Distribution Width 15.9 % (12.1-15.1); White Blood Count 19.8 10^3/uL (4.0-10.0)
[2021-05-03 05:22] LABS: Alanine Aminotransferase 84 U/L (0-33); Albumin Level 3.1 g/dL (3.5-5.2); Alkaline Phosphatase 137 IU/L (35-105); Aspartate Amino Transferase 132 U/L (0-32); Blood Urea Nitrogen 46 mg/dL (8-23); Calcium 7.9 mg/dL (8.5-10.5); Carbon Dioxide 16 mmol/L (22-29); Chloride 120 mmol/L (98-107); Globulin 2.5 g/dL (1.3-4.6); Glucose 127 mg/dL (65-115); Osmolality Calculated 321 mOsm/kg (285-295); Sodium 149 mmol/L (136-145); Total Bilirubin 0.6 mg/dL (0.15-1.2); Total Protein 5.6 g/dL (6.6-8.7)
[2021-05-03 05:33] LABS: Anion Gap 17.9 (5-19); Potassium 4.9 mmol/L (3.5-5.1)
[2021-05-03] MEDS: enoxaparin 60 mg/0.6 mL Syringe 50 MG SUBCUT ×2 (05:50→17:16)
[2021-05-03] MEDS: pantoprazole DR 40 mg Tablet PO (09:53)
[2021-05-03] MEDS: acetaminophen 325 mg Tablet 650 MG PO (09:53)
[2021-05-03] MEDS: lactated ringers 1,000 ML 30 ML IV (14:12)
--- NOTE | 2021-05-03 15:49 | PC.SOCIAL ---
IMM UPDATED IMM dated and initialed and copy given to family
[2021-05-03 16:18] LABS: Vancomycin Trough 14.7 ug/mL (10-15)
[2021-05-03] MEDS: vancomycin 1,000 MG in sodium chloride 0.9% 250 ML 250 MG IV (17:10)
--- NOTE | 2021-05-03 21:32 | PM.PN ---
Subjective Subjective: She does not feel any better today. Poor appetite., Reports she is confused. Some cough. Denies abdominal pain. Vitals/I&O/Wt Last Vital Signs Temp 97.5 F L 05/03/21 20:00 Pulse 117 H 05/03/21 20:00 Resp 24 H 05/03/21 20:00 BP 110/81 05/03/21 20:00 Pulse Ox 93 05/03/21 20:00 05/03/21 05/03/21 05/03/21 06:59 14:59 22:59 Intake Total 200 / 1130 220 / 220 745 / 965 Output Total 200 / 200 Balance 0 / 930 220 / 220 745 / 965 Weight last 48 hrs Weight 58.604 kg Physical Exam Narrative: and daughter at bedside. Const: COMMON NORMALS: no acute distress GENERAL APPEARANCE: cooperative ORIENTATION/CONSCIOUSNESS: Yes awake OTHER: Weak, but able to cough. HENMT: COMMON NORMALS: oropharynx normal Neck/C-Spine: COMMON NORMALS: no JVD Resp: COMMON NORMALS: normal respiratory effort and clear to auscultation bilaterally AUSCULTATION: clear to auscultation bilaterally Cardio: COMMON NORMALS: no JVD, regular rhythm, S1 normal heart sound present, S2 normal heart sound present and No murmurs present (Cardio) RATE: tachycardic RHYTHM: regular rhythm HEART SOUNDS: S1 normal heart sound present and S2 normal heart sound present GI: COMMON NORMALS: Normal to inspection, nondistended, normoactive bowel sounds present, Soft to palpation and non-tender PALPATION: Yes Soft to palpation Extremity: COMMON NORMALS: no joint enlargement and no pedal edema Neuro: COMMON NORMALS: moves all extremities Skin: COMMON NORMALS: no rashes or lesions noted GENERAL SKIN EXAM: no rashes or lesions noted Data : 05/03/21 04:41 05/03/21 04:41 A&P Assessment and plan (1) Pneumonia: Mr. Antibiotic changed to Primaxin. Vancomycin today noted also with better level, 14.7. For the first time appears tachycardia slightly better decreasing into 100-teens as opposed to staying in 120s. Slight decrease in leukocytosis for the first time. Sepsis with worsening leukocytosis, persistent tachycardia. Some tachycardia may be also contributed from PE, however, WBC count has been increasing, and she overall has not improved. Intermittent tachypnea, as well as some alteration in mental status. Improvement in acidosis. Some worsening renal function, increasing BUN up to 46. Restart gentle hydration. She has not been eating well. Oxygenation so far has been maintained on 2 L nasal cannula. Possible aspiration, appreciated speech therapy follow-up, continue dysphagia diet with nectar thick liquids. Given persistent findings that are concerning for sepsis with initial UA suggestive of UTI additional assessment by CT abdomen pelvis did not find obstructive uropathy. Noted subsegmental atelectasis with partial consolidation right middle lobe. Cardiomegaly, small esophageal hiatal hernia. Vicarious excretion of contrast in gallbladder from recent contrast-enhanced studies. Diverticulosis. Diffuse body wall anasarca. No evidence of high-grade small or large bowel obstruction. Air-fluid level in the stomach. Chest x-ray with worsening infiltrate also in the left upper lobe. Continue empiric coverage with caspofungin. Urine bacterial antigens including Legionella, MRSA PCR negative. Requested sputum culture Viral PCR negative for COVID-19, influenza. Blood cultures so far negative. Recently fatigue, functional decline. 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 PT. Status: Acute (2) Acute encephalopathy: Acute metabolic encephalopathy secondary to pneumonia, UTI, aspiration. As above. Reorient. Family has been here for her as well. Reorient. PT Status: Acute (3) Pulmonary emboli: Continue Lovenox. Transition to p.o. anticoagulation at discharge. Status: Acute (4) UTI (urinary tract infection): So far no growth on urine culture. No obstructive uropathy noted on CT. Antibiotic changed to Primaxin. Status: Acute Plan Poor oral intake: P.o. intake is tolerating. Resume gentle IVF. Nausea better. Negative COVID-19 PCR. She appears to also been taking naproxen. Discontinue. Continue PPI. Encourage oral intake. Normal TSH. Discussed with her and her and daughter at bedside Attestations Medical Necessity Statement*: Continue admission for assessment management of sepsis, pneumonia. 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
[2021-05-03] MEDS: haloperidol inj 5 mg/mL INJ 1 mL 2 MG IVP (23:03)
[2021-05-04] VITALS (8 sets, daily range): BP systolic 109–117; BP diastolic 76–84; PULSE 109–118; RESP 16–20; TEMP 36.4–36.8; O2SAT 95–98
[2021-05-04] MEDS: enoxaparin 60 mg/0.6 mL Syringe 50 MG SUBCUT ×2 (05:13→17:31)
[2021-05-04 05:58] LABS: Basophils # 0.1 10^3/uL (0.0-0.1); Basophils % 0.4 %; Eosinophils % 0.1 %; Hematocrit 42.7 % (37.0-47.0); Hemoglobin 12.4 g/dL (11.5-15.3); Lymphocytes # 0.7 10^3/uL (0.8-4.8); Mean Corpuscular Hemoglobin 30.8 pg (28.0-34.0); Mean Platelet Volume 11.7 fL (7.4-10.4); Monocytes # 1.1 10^3/uL (0.2-0.9); Neutrophils # 15.56 10^3/uL (1.8-7.7); Neutrophils % 87.1 %; Nucleated Red Blood Cells # 0.3 /100WBC; Nucleated Red Blood Cells % 1.5 %; Platelet Count 170 10^3/cmm (130-400); Red Blood Count 4.03 10^6/uL (4.1-5.3); Red Cell Distribution Width 16.3 % (12.1-15.1); White Blood Count 17.9 10^3/uL (4.0-10.0)
[2021-05-04 06:13] LABS: Alanine Aminotransferase 150 U/L (0-33); Alkaline Phosphatase 161 IU/L (35-105); Blood Urea Nitrogen 49 mg/dL (8-23); Calcium 8.1 mg/dL (8.5-10.5); Carbon Dioxide 19 mmol/L (22-29); Chloride 120 mmol/L (98-107); Globulin 3.2 g/dL (1.3-4.6); Glucose 103 mg/dL (65-115); Osmolality Calculated 327 mOsm/kg (285-295); Sodium 152 mmol/L (136-145); Total Bilirubin 0.5 mg/dL (0.15-1.2); Total Protein 6.2 g/dL (6.6-8.7)
[2021-05-04 06:44] LABS: Anion Gap 18.6 (5-19); Aspartate Amino Transferase 266 U/L (0-32); Potassium 5.6 mmol/L (3.5-5.1)
[2021-05-04] MEDS: acetaminophen 650 mg Supp PR (08:43)
[2021-05-04] MEDS: dextrose 5% 1,000 ML 30 ML IV (10:44)
[2021-05-04] MEDS: pantoprazole DR 40 mg Tablet PO (10:45)
--- NOTE | 2021-05-04 11:33 | CTR_ITS ---
PROCEDURE INFORMATION: Exam: CT Angiography Abdomen and Pelvis With Contrast, GI Bleeding Exam date and time: 05/04/2021 11:33 AM Age: 76 years old Clinical indication: Fever; Abdominal pain; Generalized; Patient HX: Abd pain w sepsis; Additional info: Persistent sepsis, abdo pain, assess for bowel ischemia TECHNIQUE: Imaging protocol: Computed tomographic angiography of the abdomen and pelvis with contrast. 3D rendering (Not supervised by radiologist): MIP and/or 3D reconstructed images were created by the technologist. Radiation optimization: All CT scans at this facility use at least one of these dose optimization techniques: automated exposure control; mA and/or kV adjustment per patient size (includes targeted exams where dose is matched to clinical indication); or iterative reconstruction. Contrast material: VISI 320; Contrast volume: 90 ml; Contrast route: INTRAVENOUS (IV); COMPARISON: abdomen limited [id number] 05/04/2021 7:54 AM RADIATION DOSE METRICS: Total DLP (mGy-cm): 540.48 FINDINGS: Lungs: Bibasilar infiltrates. Pleural space: Moderate to large bilateral pleural effusions. Heart: Cardiomegaly. Aorta: No aortic aneurysm. No aortic dissection. Celiac trunk and mesenteric arteries: No occlusion or significant stenosis. Renal arteries: No occlusion or significant stenosis. Right iliac arteries: No occlusion or significant stenosis. Left iliac arteries: No occlusion or significant stenosis. Liver: No mass. Gallbladder and bile ducts: Sludge versus vicarious secretion of contrast seen in the gallbladder. Pancreas: Unremarkable. No mass. No ductal dilation. Spleen: Unremarkable. No splenomegaly. Adrenal glands: Normal. No mass. Kidneys and ureters: Unremarkable. No solid mass. No hydronephrosis. Stomach and bowel: Diverticulosis without diverticulitis. Hyperdensity seen throughout colon, similar to prior exam without definite findings of contrast extravasation to indicate a source of bleeding. Appendix: No evidence of appendicitis. Intraperitoneal space: Small amount of ascites in the abdomen and pelvis, nonspecific. Lymph nodes: Unremarkable. No enlarged lymph nodes. Urinary bladder: Perdue catheter in the urinary bladder with air presumed iatrogenic. Reproductive: Unremarkable as visualized. Bones/joints: No acute fracture. No dislocation. Soft tissues: Moderate subcutaneous edema over the abdomen and pelvis. CT/CT angio abdomen pelvis [id number] IMPRESSION: 1. Mesenteric vasculature appears patent without pneumatosis intestinalis to suggest bowel ischemia as clinically questioned. Negative for focal acute inflammatory process seen in the abdomen or pelvis. 2. Moderate to large bilateral pleural effusions. 3. Cardiomegaly. 4. Bibasilar infiltrates. 5. Sludge versus vicarious secretion of contrast seen in the gallbladder. 6. Diverticulosis without diverticulitis. 7. Perdue catheter in the urinary bladder with air presumed iatrogenic. 8. Moderate subcutaneous edema over the abdomen and pelvis, nonspecific. 9. Small amount of ascites in the abdomen and pelvis, nonspecific.
[2021-05-04 14:41] LABS: Potassium 5.3 mmol/L (3.5-5.1)
[2021-05-04] MEDS: vancomycin 1,000 MG in sodium chloride 0.9% 250 ML 250 MG IV (15:41)
[2021-05-04] MEDS: iodixanol 320 mg/mL 100mL Btl IV (17:07)
--- NOTE | 2021-05-04 19:27 | PM.PN ---
Subjective Subjective: Had a difficult night, has been confused. Wakes up. Denies pain, although abdomen has been noted tender today. Is tender to palpation. She does not provide much other history. Vitals/I&O/Wt Last Vital Signs Temp 98.0 F 05/04/21 15:22 Pulse 117 H 05/04/21 15:22 Resp 18 05/04/21 15:22 BP 114/77 05/04/21 15:22 Pulse Ox 96 05/04/21 15:22 05/04/21 05/04/21 05/04/21 06:59 14:59 22:59 Intake Total 253 / 1218 386 / 386 350 / 736 Output Total 350 / 350 Balance 253 / 1118 386 / 386 0 / 386 Weight last 48 hrs Weight 60.691 kg Weight 58.604 kg Physical Exam Narrative: and daughter at bedside. Const: COMMON NORMALS: no acute distress GENERAL APPEARANCE: cooperative and lethargic ORIENTATION/CONSCIOUSNESS: Yes confused and Yes lethargic OTHER: Weak, but able to cough. HENMT: COMMON NORMALS: oropharynx normal Neck/C-Spine: COMMON NORMALS: no JVD Resp: COMMON NORMALS: normal respiratory effort and clear to auscultation bilaterally AUSCULTATION: clear to auscultation bilaterally Cardio: COMMON NORMALS: no JVD, regular rhythm, S1 normal heart sound present, S2 normal heart sound present and No murmurs present (Cardio) RATE: tachycardic RHYTHM: regular rhythm HEART SOUNDS: S1 normal heart sound present and S2 normal heart sound present GI: COMMON NORMALS: Normal to inspection, nondistended, normoactive bowel sounds present, Soft to palpation and non-tender PALPATION: Yes Soft to palpation Extremity: COMMON NORMALS: no joint enlargement and no pedal edema Neuro: COMMON NORMALS: moves all extremities SENSORIUM/ORIENTATION: Yes lethargic Skin: COMMON NORMALS: no rashes or lesions noted GENERAL SKIN EXAM: no rashes or lesions noted Urinary Catheter Management: Perdue: Cath Placed During This Visit: yes Reason for Continuing Indwelling Catheter: Other Urinary Catheter Date of Insertion: 05/04/21 Urinary Catheter Time of Insertion: 11:10 Data : 05/04/21 04:26 05/04/21 14:01 A&P Assessment and plan (1) Pneumonia: Sepsis secondary to pneumonia, although oxygenation has not been bad, requiring 2 L nasal cannula. She has been having persistent sepsis, leukocytosis today slightly down to 17.9, still tachycardia, 117 bpm. Acute metabolic encephalopathy with delirium. Continue Primaxin, vancomycin. Discussed with family microbiologic studies so far. Continue aspiration precautions. Possible aspiration, appreciated speech therapy follow-up, continue dysphagia diet with nectar thick liquids. Continue empiric coverage with caspofungin. Urine bacterial antigens including Legionella, MRSA PCR negative. Requested sputum culture Viral PCR negative for COVID-19, influenza. Blood cultures so far negative. Recently fatigue, functional decline. 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 PT. Status: Acute (2) Abdominal tenderness: Given persistent sepsis, mild lactic acidosis noted yesterday, and today new abdominal tenderness on palpation, and also given she cannot provide reliable ROS, history, discussed additional assessment. We requested for gallbladder ultrasound Due to liver primary normality with elevation of alk phos, some transaminitis noted as well. Ultrasound with noted right pleural effusion, echogenic bowel and gallbladder and pericholecystic fluid. But normal caliber though incompletely visualized bile duct. T bili has remained normal. She did not appear to have localized right upper quadrant tenderness, or other more generalized tenderness. As ultrasound did not clearly suggest gallbladder as etiology of ongoing sepsis additional assessment due to trauma abdominal pain was undertaken with CT angiogram of abdomen pelvis after discussion with additional risks with the family. No signs of bowel ischemia noted on this study, cardiomegaly, moderate to large bilateral pleural effusions. Bibasilar infiltrates. Sludge versus vicarious secretion of contrast in gallbladder. Diverticulosis without diverticulitis. Perdue catheter in urinary bladder with air presumed iatrogenic. Moderate subcutaneous edema of abdomen pelvis, nonspecific. Small amount of ascites. Status: Acute (3) Cardiomegaly: With cardiomegaly noted, multiorgan injury including liver injury, RENETTA, acute encephalopathy, requesting TTE for additional assessment of cardiac function. Discussed with family consideration of possible heart failure, hypoperfusion. DC IVF. Status: Acute (4) Acute encephalopathy: Acute metabolic encephalopathy secondary to pneumonia, UTI, aspiration. As above. Reorient. Family has been here for her as well. PT Status: Acute (5) Pulmonary emboli: Continue Lovenox. Transition to p.o. anticoagulation at discharge. Status: Acute (6) UTI (urinary tract infection): So far no growth on urine culture. No obstructive uropathy noted on CT. continue Primaxin. Status: Acute Plan Poor oral intake: Poor oral intake, but abdominal edema noted, discontinue further IV fluid. Nausea better. Negative COVID-19 PCR. She appears to also been taking naproxen. Discontinue. Continue PPI. Encourage oral intake. Normal TSH. Hypernatremia: Today received D5W. Follow-up sodium level. Hold additional IVF for now. Suspect hypernatremia, hyperchloremia secondary to IV fluids. RENETTA: Creatinine up to 1.1. BUN 49. Additional assessment by TTE with concern for renal hypoperfusion among other organs. Patient also been taking naproxen at home. Received gentle fluid challenge, however, with noted moderate subcutaneous edema. Discontinue further IV fluid. Discussed with her and her and daughter at bedside Attestations Medical Necessity Statement*: Continue admission for assessment management of sepsis, assessment for additional etiology of multiorgan injury. 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
--- NOTE | 2021-05-04 21:30 | USR_ITS ---
PROCEDURE INFORMATION: Exam: US Abdomen, Limited; Right Upper Quadrant Exam date and time: 05/04/2021 9:30 PM Age: 76 years old Clinical indication: Abnormal findings; Abnormal radiologic finding of the abdomen; Radiologic exam and body structure: CT gallbladder; Additional info: Hepatobiliary - sepsis, mild hepatic abnormality, assess for poss cholecystitis TECHNIQUE: Imaging protocol: US abdomen. Real time ultrasound with image documentation. Limited exam focused on the right upper quadrant. COMPARISON: CT kidney stone [id number] 05/02/2021 9:03 AM FINDINGS: Pleural spaces: Right pleural effusion. Liver: No focal hepatic mass. Gallbladder: Echogenic bile in the gallbladder and pericholecystic fluid. Assessment of a sonographic Padilla sign was not reported by the scanning technologist. Common bile duct: Normal caliber of the incompletely visualized common bile duct measuring 4 mm in diameter. Pancreas: No acute sonographic abnormality in the visualized pancreas. Right kidney: Normal right renal morphology. No hydronephrosis. Inferior vena cava: Unremarkable IVC. Intraperitoneal space: Trace intraperitoneal fluid. US/US abdomen limited [id number] IMPRESSION: 1. Right pleural effusion. 2. Echogenic bile in the gallbladder and pericholecystic fluid. 3. Additional findings as described above.
[2021-05-04] MEDS: trazodone 50 mg Tablet 25 MG PO (21:58)
[2021-05-04] MEDS: acetaminophen 325 mg Tablet 650 MG PO (21:59)
[2021-05-05] MEDS: acetaminophen 325 mg Tablet 650 MG PO ×4 (03:41→21:08)
[2021-05-05 04:00] VITALS: BP 115/81; PULSE 112; RESP 17; TEMP 36.4; O2SAT 94
[2021-05-05] MEDS: enoxaparin 60 mg/0.6 mL Syringe 50 MG SUBCUT ×2 (05:38→17:38)
[2021-05-05 06:15] LABS: Basophils % 0.3 %; Eosinophils # 0.1 10^3/uL (0.0-0.8); Eosinophils % 0.4 %; Hematocrit 43.6 % (37.0-47.0); Hemoglobin 12.6 g/dL (11.5-15.3); Lymphocytes # 0.7 10^3/uL (0.8-4.8); Lymphocytes % 4.6 %; Mean Corpuscular HGB Conc 28.9 g/dL (30.0-36.0); Mean Corpuscular Volume 107.4 fl (81-99); Mean Platelet Volume 10.4 fL (7.4-10.4); Monocytes # 0.8 10^3/uL (0.2-0.9); Monocytes % 5.6 %; Neutrophils % 86.5 %; Nucleated Red Blood Cells # 0.2 /100WBC; Nucleated Red Blood Cells % 1.4 %; Platelet Count 237 10^3/cmm (130-400); Red Blood Count 4.06 10^6/uL (4.1-5.3); Red Cell Distribution Width 16.6 % (12.1-15.1); White Blood Count 14.2 10^3/uL (4.0-10.0)
[2021-05-05 06:32] LABS: Albumin Level 2.8 g/dL (3.5-5.2); Alkaline Phosphatase 154 IU/L (35-105); Blood Urea Nitrogen 48 mg/dL (8-23); Calcium 7.8 mg/dL (8.5-10.5); Carbon Dioxide 16 mmol/L (22-29); Chloride 122 mmol/L (98-107); Glucose 94 mg/dL (65-115); Osmolality Calculated 322 mOsm/kg (285-295); Sodium 150 mmol/L (136-145); Total Bilirubin 0.5 mg/dL (0.15-1.2); Total Protein 5.8 g/dL (6.6-8.7)
[2021-05-05 06:59] LABS: Alanine Aminotransferase 107 U/L (0-33); Anion Gap 17.7 (5-19); Aspartate Amino Transferase 111 U/L (0-32); Potassium 5.7 mmol/L (3.5-5.1)
[2021-05-05 07:26] VITALS: BP 105/69; PULSE 114; RESP 20; TEMP 36.9; O2SAT 92
--- NOTE | 2021-05-05 08:52 | USCV_ITS ---
Lauren Bishop Age: 76 Gender: F : 1945 Exam Date: 05/05/2021 14:37 Ordering Phys: Binu Barriga MD Technologist: Reyna Iyer Exam Location: [facility] [place] Indication: Pulmonary embolism BP: 115 / 81 HR: 111 Rhythm: Sinus Technical Quality: Adequate MEASUREMENTS (Male / Female) Normal Values 2D ECHO LV Diastolic Diameter PLAX 4.9 cm 4.2 - 5.9 / 3.9 - 5.3 cm LV Systolic Diameter PLAX 4.5 cm IVS Diastolic Thickness 1.0 cm 0.6 - 1.0 / 0.6 - 0.9 cm IVS Systolic Thickness 1.1 cm LVPW Diastolic Thickness 1.0 cm 0.6 - 1.0 / 0.6 - 0.9 cm LVPW Systolic Thickness 0.9 cm LVOT Diameter 2.0 cm LV Ejection Fraction 2D Teich 19.2 % LV Ejection Fraction MOD 2C 25.7 % LV Ejection Fraction 2C AL 29.3 % LA Diameter 3.3 cm LA Width 4.0 cm LA Height 5.4 cm RA Width 5.3 cm RA Height 4.6 cm Aorta at Sinotubular Diameter 2.8 cm M-MODE Aortic Annulus Diameter 2.5 cm LA Ao Ratio MM 1.5 MV E Point Septal Separation 1.5 cm DOPPLER AV Peak Velocity 132.0 cm/s LVOT Peak Velocity 78.3 cm/s AV Area Cont Eq vti 1.8 cm squared AV Area Cont Eq pk 1.9 cm squared MV Area PHT 7.7 cm squared Mitral E to A Ratio 2.8 MV E' Velocity 82.2 cm/s Mitral E to MV E' Ratio 8.9 Mitral E to LV E' Lateral Ratio 8.7 Mitral E to LV E' Septal Ratio 9.3 TR Peak Velocity 197.2 cm/s TR Peak Gradient 15.6 mmHg TR Mean Velocity 198.8 cm/s TR Mean Gradient 18.8 mmHg TR Velocity Time Integral 76.5 cm TV Peak E Velocity 85.0 cm/s Right Atrial Pressure 8.0 mmHg Pulmonary Artery Systolic Pressu 23.6 mmHg PV Peak Velocity 91.0 cm/s RV Acceleration Time 0.1 s RV Ejection Time 0.2 s RV AcT/ET 0.3 FINDINGS Left Ventricle Mildly increased left ventricular cavity size. Severely decreased left ventricular systolic function. Left ventricular ejection fraction is estimated at 20 %. Severe global hypokinesis. Abnormal septal motion consistent with conduction abnormality. Right Ventricle Normal right ventricular size and systolic function. Right ventricular systolic pressure 49 mmHg. Right Atrium Normal right atrial size. Right atrial pressure estimated at 8 mm Hg. Left Atrium Mildly increased left atrial size. Mitral Valve Mild mitral annular calcification. Mildly thickened mitral valve. No mitral valve stenosis. Mild to moderate posteriorly directed mitral valve regurgitation. Aortic Valve Structurally normal trileaflet aortic valve. No aortic valve stenosis. No aortic valve regurgitation. Tricuspid Valve Structurally normal tricuspid valve. No tricuspid valve stenosis. Moderate tricuspid valve regurgitation. Pulmonic Valve Pulmonic valve not well visualized. No pulmonary valve stenosis. Trace pulmonary valve regurgitation. Pericardium No pericardial effusion. Pleural effusion. Aorta Normal-sized aortic root. Normal-sized inferior vena cava with less than 50% respiratory variation. CONCLUSIONS 1. Mildly increased left ventricular cavity size. Severely decreased left ventricular systolic function. Left ventricular ejection fraction is estimated at 20 %. Severe global hypokinesis. Abnormal septal motion consistent with conduction abnormality. 2. Normal right ventricular size and systolic function. 3. Mild to moderate posteriorly directed mitral valve regurgitation. 4. Moderate tricuspid valve regurgitation. 5. Moderate pulmonary hypertension with pulmonary pressure estimated at 49 mmHg. 6. No prior similar studies to compare. Hannah Salas MD (Electronically Signed) Final Date: 05 May 2021 13:34 S
[2021-05-05] MEDS: pantoprazole DR 40 mg Tablet PO (09:52)
[2021-05-05 12:00] VITALS: BP 118/64; PULSE 105; RESP 18; O2SAT 94
--- NOTE | 2021-05-05 13:41 | ECG_ITS ---
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 Measurements Intervals [place] Rate: 120 P: 29 NV: 161 QRS: -5 QRSD: 128 T: 124 QT: 312 QTc: 442 Interpretive Statements SINUS TACHYCARDIA LEFT BUNDLE BRANCH BLOCK [120+ ms QRS DURATION, 80+ ms Q/S IN V1/V2, 85+ ms R IN I/aVL/V5/V6] Compared to ECG 05/01/2021 10:23:28 No significant changes Electronically Signed On 05-06-2021 16:14:16 BEHAVIORAL HEALTH CLINICIAN by Hannah Salas M.D. [id number]
[2021-05-05 13:50] VITALS: PULSE 105; RESP 18; O2SAT 94
--- NOTE | 2021-05-05 14:02 | PM.PN ---
Subjective Subjective: She is still confused, but today appears to be slightly calmer, she is sleeping. Does wake up some to loud voice. Vitals/I&O/Wt Last Vital Signs Temp 98.5 F 05/05/21 07:26 Pulse 105 H 05/05/21 12:00 Resp 18 05/05/21 12:00 BP 118/64 05/05/21 12:00 Pulse Ox 94 05/05/21 12:00 05/04/21 05/05/21 05/05/21 22:59 06:59 14:59 Intake Total 1087 / 1473 100 / 1573 100 / 100 Output Total 350 / 350 350 / 700 Balance 737 / 1123 -250 / 873 100 / 100 Weight last 48 hrs Weight 59.92 kg Weight 60.691 kg Physical Exam Narrative: at bedside. Const: COMMON NORMALS: no acute distress GENERAL APPEARANCE: cooperative and lethargic ORIENTATION/CONSCIOUSNESS: Yes confused and Yes lethargic OTHER: Weak, but able to cough. HENMT: COMMON NORMALS: oropharynx normal Neck/C-Spine: COMMON NORMALS: no JVD Resp: COMMON NORMALS: normal respiratory effort and clear to auscultation bilaterally AUSCULTATION: clear to auscultation bilaterally Cardio: COMMON NORMALS: no JVD, regular rhythm, S1 normal heart sound present, S2 normal heart sound present and No murmurs present (Cardio) RATE: tachycardic RHYTHM: regular rhythm HEART SOUNDS: S1 normal heart sound present and S2 normal heart sound present GI: COMMON NORMALS: Normal to inspection, nondistended, normoactive bowel sounds present, Soft to palpation and non-tender PALPATION: Yes Soft to palpation and Yes Tenderness to palpation present (GI) (Minimal tenderness to the right of umbilicus, much less than yesterday) Extremity: COMMON NORMALS: no joint enlargement and no pedal edema Neuro: COMMON NORMALS: moves all extremities SENSORIUM/ORIENTATION: Yes lethargic Skin: COMMON NORMALS: no rashes or lesions noted GENERAL SKIN EXAM: no rashes or lesions noted Urinary Catheter Management: Perdue: Cath Placed During This Visit: yes Reason for Continuing Indwelling Catheter: Acute Urinary Retention or Obstruction Urinary Catheter Date of Insertion: 05/04/21 Urinary Catheter Time of Insertion: 11:10 Data : 05/05/21 04:25 05/05/21 04:25 Micro: Microbiology 04/29/21 20:00 Blood Culture - Final Blood NO GROWTH AFTER 5 DAYS 04/29/21 19:58 Blood Culture - Final Blood NO GROWTH AFTER 5 DAYS A&P Assessment and plan (1) Pneumonia: Appears to be showing response to treatment now with leukocytosis decreased to 14.2, Improvement in tachycardia, heart rate down to 105. Still confused. Continue antibiotics changed with Primaxin, vancomycin. Continue aspiration precautions. Possible aspiration, appreciated speech therapy follow-up, continue dysphagia diet with nectar thick liquids. Continue empiric coverage with caspofungin. TTE has been pending. Appears to have low EF, 20%, severe global hypokinesis. Hold off diuretic for now due to lack of PO intake, but avoid further IVF. With some renal dysfunction, will also assess for anti-GBM antibodies. With PE, persistent tachycardia, abscess antiphospholipid, SLE studies. Noted pleural effusions, previously only small, now large, less likely empyema, but may benefit from thoracentesis. Would consider assessment with thoracic ultrasound and discussion with pulmonology and/or IR regarding possibility of thoracentesis before holding anticoagulation which is needed for PEs. Urine bacterial antigens including Legionella, MRSA PCR negative. Requested sputum culture Viral PCR negative for COVID-19, influenza. Blood cultures so far negative. Recently fatigue, functional decline. 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 PT. Status: Acute (2) Cardiomyopathy: Not entirely clear because of cardiomyopathy. Ejection fraction appears to be 20%. Without known prior history of cardiomyopathy, CHF. Obtain troponin series. Consider additional ischemic work-up, if continues to improve possibly with angiogram in consultation with cardiology to rule out ischemic heart disease. Additionally has been having tachycardia here, thought to be in association with pneumonia, sepsis, however, looking back she appears to have recurrent or persistent tachycardia which is present on all her prior vitals. Tachycardia only not seen here on presentation mostly during her time in the ER. Tachycardia induced cardiomyopathy would be a consideration. Tachycardia appears to be improving, however, today down to 105, appears to be improving with treatment, so etiology of tachycardia self is not clear. Symptoms of possible low output failure transiently, with acute encephalopathy, mild RENETTA, mild transaminitis, some decrease in urine output. Not hypotensive, although blood pressures on the soft side. Generalized abdominal tenderness, no focal ischemia, although difficult to say if not having some global gut hypoperfusion. Monitor for fluid overload. Consider trial of aneudy blockers, but cautious given potential for decompensated heart failure in case tachycardia is driven by reflex. Status: Acute (3) Tachycardia: Appears to have persistent tachycardia looking back through her chart also during outpatient appointments as far back as November. Unclear etiology. Obtain troponin series as above. Unclear whether this is reflux tachycardia secondary to PE, possibly recurrent PE, however, RV function appears to be without strain, oxygenation is good on 2 L nasal cannula, doubt that the PE should be causing this degree of tachycardia. There is no pericardial effusion on TTE. She had not had any chest pain. CRP is elevated. Would not suspect infectious pericarditis, however, whether another cause pericarditis/serositis difficult to tell. Will additionally assess initial autoimmune studies. Consider cautious beta-tabitha, although risk for decompensation in case of reflex tachycardia. Will discuss with family. Status: Acute (4) Abdominal tenderness: Today much less tender. We did obtain CTA yesterday which did not show signs of focal ischemia, although difficult to exclude mild global hypoperfusion with low EF, possible low output failure. Further assess with HIDA scan. Status: Acute (5) Pleural effusion, bilateral: Previously small, now on CTA noted moderate to large effusions. Consider follow-up with chest ultrasound tomorrow, and discussion with pulmonology or interventional radiology regarding potential thoracentesis, although anticoagulation for PE would need to be discontinued first. Given new findings of cardiomyopathy, CHF, would anticipate infusions to be rather transudate of, however, obtaining a sample may be of benefit to exclude empyema. Status: Acute (6) Transaminitis: Some echogenic contents of gallbladder. Some pericholecystic fluid. Alk phos elevation, variable last several days, mild to moderate elevation of AST, ALT. Not clear evidence of acute cholecystitis. Yesterday abdomen diffusely tender. Today on the right side periumbilical, not tender right upper quadrant. Hepatitis panel. Check GGT, KATERINE. Hold off AMA for now as not typical presentation for PBC, but consider if additional vitamin studies come back positive, although suspect this is more likely an acute issue, possibly related to the cardiomyopathy with decompensation due to acute illness. Status: Acute (7) Cardiomegaly: As above Status: Acute (8) Acute encephalopathy: Acute metabolic encephalopathy secondary to pneumonia, UTI, aspiration. As above. Reorient. Family has been here for her as well. PT Status: Acute (9) Pulmonary emboli: Continue Lovenox. Transition to p.o. anticoagulation at discharge. Status: Acute (10) UTI (urinary tract infection): So far no growth on urine culture. No obstructive uropathy noted on CT. continue Primaxin. Status: Acute Plan Poor oral intake: Poor oral intake, but abdominal edema noted, discontinue further IV fluid. Nausea better. Negative COVID-19 PCR. She appears to also been taking naproxen. Discontinue. Continue PPI. Encourage oral intake. Normal TSH. Hypernatremia: Requested with pharmacy if base fluid can be switched for her antibiotics. DC further IVF. Follow-up sodium level. Suspect hypernatremia, hyperchloremia secondary to IV fluids. RENETTA: Creatinine up to 1.1. BUN 49. Additional assessment by TTE with concern for renal hypoperfusion among other organs. Patient also been taking naproxen at home. Received gentle fluid challenge, however, with noted moderate subcutaneous edema. Discontinue further IV fluid. Attestations Medical Necessity Statement*: Continue admission for assessment and management of sepsis, multiorgan injury, newly diagnosed cardiomyopathy. Coding Level of Care Code Acute Information Assurance Analyst for [facility] Fwd Diagnoses Pneumonia J18.9 Abdominal tenderness R10.819 Cardiomegaly I51.7 Acute encephalopathy G93.40 Pulmonary emboli I26.99 UTI (urinary tract infection) N39.0 Cardiomyopathy I42.9 Tachycardia R00.0 Transaminitis R74.01 Pleural effusion, bilateral J90
[2021-05-05 15:26] LABS: Troponin(5th) Baseline 519 ng/L (0-10)
--- NOTE | 2021-05-05 15:41 | ECG_ITS ---
[facility] Test Date: 2021-05-05 Pat Name: Lauren Bishop Department: Room: 252 Gender: Female Underwriting Consultant: : 1945 Requested By: Binu Barriga Order Number: [id number] Coppola MD: Hannah Salas M.D. Measurements Intervals [place] Rate: 119 P: 21 IN: 136 QRS: 0 QRSD: 137 T: 122 QT: 336 QTc: 474 Interpretive Statements SINUS TACHYCARDIA POSSIBLE LEFT ATRIAL ENLARGEMENT [-0.1mV P WAVE IN V1/V2] INTRAVENTRICULAR CONDUCTION DELAY [130+ ms QRS DURATION] ANTEROSEPTAL MYOCARDIAL INFARCTION , POSSIBLY ACUTE [40+ ms Q WAVE IN V1-V4] ACUTE VA Compared to ECG 05/05/2021 13:53:19 Intraventricular conduction delay now present Myocardial infarct finding now present Left bundle-branch block no longer present Electronically Signed On 05-06-2021 16:22:36 PRE FABRICATOR by Hannah Salas M.D. [id number]
[2021-05-05 15:46] LABS: Hepatitis A Antibody IgM Non-Reactive (Nonreactive); Hepatitis B Core IgM Non-Reactive (Nonreactive); Hepatitis B Surface Antigen Non-Reactive (Nonreactive); Hepatitis C Virus Antibody Non-Reactive (Nonreactive)
[2021-05-05 15:49] VITALS: BP 109/65; PULSE 107; RESP 20; TEMP 36.7; O2SAT 94
--- NOTE | 2021-05-05 16:18 | PC.SOCIAL ---
IMM UPDATED IMM dated and initialed and copy given to family
[2021-05-05 16:37] LABS: Troponin 5 2HR 522.6 ng/L (0-10); Troponin 5 2HR Delta 3.6 ABS# (0-10)
--- NOTE | 2021-05-05 19:41 | ECG_ITS ---
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 Measurements Intervals [place] Rate: 116 P: 33 MD: 170 QRS: -1 QRSD: 127 T: 60 QT: 336 QTc: 467 Interpretive Statements SINUS TACHYCARDIA POSSIBLE LEFT ATRIAL ENLARGEMENT [-0.1mV P WAVE IN V1/V2] LEFT BUNDLE BRANCH BLOCK [120+ ms QRS DURATION, 80+ ms Q/S IN V1/V2, 85+ ms R IN I/aVL/V5/V6] Compared to ECG 05/05/2021 15:44:07 Left bundle-branch block now present Intraventricular conduction delay no longer present Myocardial infarct finding no longer present Electronically Signed On 05-06-2021 16:21:47 ON SITE WASTEWATER SYSTEMS TECHNICIAN by Hannah Salas M.D. [id number]
[2021-05-05 20:00] VITALS: BP 107/74; PULSE 116; RESP 18; TEMP 36.6; O2SAT 92
[2021-05-05] MEDS: levofloxacin-dextrose 5 % 750 MG/150 ML PREMIX 100 MG IV (21:07)
[2021-05-05] MEDS: aspirin 300 mg Supp PR (21:09)
[2021-05-05] MEDS: trazodone 50 mg Tablet 25 MG PO (21:09)
[2021-05-05 21:28] LABS: Gamma Glutamyl Transferase 108 U/L (5-36)
[2021-05-06] VITALS (10 sets, daily range): BP systolic 96–110; BP diastolic 64–72; PULSE 111–118; RESP 16–27; TEMP 36.4–37.1; O2SAT 88–96
[2021-05-06 00:01] LABS: Troponin 5 6HR 572.8 ng/L (0-10)
[2021-05-06 00:02] LABS: Troponin 5 6HR Delta 53.8 ng/L (0-12)
[2021-05-06 04:56] LABS: Basophils # 0.1 10^3/uL (0.0-0.1); Basophils % 0.4 %; Eosinophils # 0.1 10^3/uL (0.0-0.8); Eosinophils % 0.4 %; Hematocrit 43.4 % (37.0-47.0); Hemoglobin 12.6 g/dL (11.5-15.3); Lymphocytes # 0.6 10^3/uL (0.8-4.8); Lymphocytes % 3.5 %; Mean Corpuscular Volume 106.9 fl (81-99); Mean Platelet Volume 9.6 fL (7.4-10.4); Monocytes # 0.8 10^3/uL (0.2-0.9); Monocytes % 4.7 %; Neutrophils # 14.05 10^3/uL (1.8-7.7); Neutrophils % 86.6 %; Nucleated Red Blood Cells # 0.2 /100WBC; Nucleated Red Blood Cells % 1.1 %; Platelet Count 264 10^3/cmm (130-400); Red Blood Count 4.06 10^6/uL (4.1-5.3); Red Cell Distribution Width 17.1 % (12.1-15.1); White Blood Count 16.2 10^3/uL (4.0-10.0)
[2021-05-06 05:15] LABS: Alanine Aminotransferase 73 U/L (0-33); Albumin Level 2.9 g/dL (3.5-5.2); Alkaline Phosphatase 148 IU/L (35-105); Anion Gap 14.6 (5-19); Aspartate Amino Transferase 53 U/L (0-32); Blood Urea Nitrogen 42 mg/dL (8-23); Calcium 7.8 mg/dL (8.5-10.5); Carbon Dioxide 22 mmol/L (22-29); Chloride 124 mmol/L (98-107); Globulin 3.1 g/dL (1.3-4.6); Glucose 120 mg/dL (65-115); Osmolality Calculated 332 mOsm/kg (285-295); Potassium 5.6 mmol/L (3.5-5.1); Sodium 155 mmol/L (136-145); Total Bilirubin 0.4 mg/dL (0.15-1.2)
[2021-05-06] MEDS: enoxaparin 60 mg/0.6 mL Syringe 50 MG SUBCUT ×2 (05:19→17:34)
[2021-05-06 05:29] LABS: HIV 1 & 2 Antibody Non-Reactive (Non-Reactiv); HIV 1 & 2 Antigen Non-Reactive (Non-Reactiv)
--- NOTE | 2021-05-06 07:00 | NM_ITS ---
WS: [id number] NUCLEAR MEDICINE HIDA SCAN HISTORY: AP elevation, pericholecystic fluid, assess possible cholecystitis. COMPARISON: None available. TECHNIQUE: The patient was intravenously injected with 8.4 mCi of TC99m Mebrofenin. Immediate imaging over the right upper quadrant was followed by 5 minute image and additional images for a total of 12 0 minutes. Normal uptake of radiotracer throughout the liver. Activity noted within the small bowel at 30 minutes. No definite filling of the gallbladder. Approach ing 60 minutes there is a tiny area of increased uptake noted just to the RIGHT of the common bile du ct. This is the location of the gallbladder on the recent CT. This could be partial filling of the ga llbladder or just a tortuous common bile duct. Imaging is carried out for 120 minutes with no definite filling of the gallbladder. No ejection fraction performed. NM/NM hepatobiliary wo phar [id number] IMPRESSION: 1. No common bile duct obstruction. Activity noted within the proximal small b owel by 30 minutes. 2. Gallbladder does not definitely fill during this examination. Highly suspic ious for cystic duct obstruction. Alternatively gallbladder was mildly distende d on recent ultrasound and CT with sludge. This may impede reflux of the radion uclide into the gallbladder.
--- NOTE | 2021-05-06 07:05 | XRR_ITS ---
PROCEDURE INFORMATION: Exam: XR Chest Exam date and time: 05/06/2021 7:05 AM Age: 76 years old Clinical indication: Condition or disease; Lung condition and disease; Pleural effusion; Other: Not specified; Patient HX: AMS (pt sedated); Additional info: Pl effusion, SOB TECHNIQUE: Imaging protocol: XR of the chest. Views: 1 view. Total images: 1 COMPARISON: CR XR chest 1V portable [id number] 05/02/2021 8:21 AM FINDINGS: Lungs: Pulmonary vascular congestion. Slight interval worsening of bilateral pleuroparenchymal disease. Pleural spaces: No pneumothorax. Heart/Mediastinum: Cardiomegaly. Bones/joints: Osseous structures are unchanged from the prior exam. XR/XR chest 1V portable [id number] IMPRESSION: 1. Cardiomegaly with pulmonary vascular congestion. 2. Slight interval worsening of bilateral pleuroparenchymal disease.
[2021-05-06] MEDS: aspirin 300 mg Supp PR (11:20)
[2021-05-06] MEDS: pantoprazole 40 mg SDV IVP (11:21)
--- NOTE | 2021-05-06 11:54 | P.PN_ITS ---
Subjective Subjective: Patient after her HIDA scan, she was not arousable at all, at the bedside She is not arousable to painful stimuli Not able to follow commands ABG showed respiratory acidosis, started BiPAP CT head unremarkable for acute stroke lytic changes Give her insulin regular 10 units along dextrose Give her Lasix Pulmonary edema on chest x-ray I have discussed goals of care with her , daughter updated Vitals/I&O/Wt Last Vital Signs Temp 98.7 F 05/06/21 07:23 Pulse 112 H 05/06/21 07:23 Resp 16 05/06/21 07:23 BP 110/72 05/06/21 07:23 Pulse Ox 94 05/06/21 07:23 05/05/21 05/06/21 05/06/21 22:59 06:59 14:59 Intake Total 720 / 850 350 / 1200 Output Total 225 / 225 Balance 720 / 850 125 / 975 Weight last 48 hrs Weight 61.643 kg Weight 59.92 kg Physical Exam Narrative: Frail elderly female Clinical signs of fluid overload Not arousable Neuro exam is limited Nonlabored breathing Currently on 2 L nasal cannula Abdomen soft 3+ pitting edema of legs Bilateral breath sounds without adventitious rhonchi however crackles positive Dry cracked lips S1, S2 Urinary Catheter Management: Perdue: Cath Placed During This Visit: yes Reason for Continuing Indwelling Catheter: Acute Urinary Retention or Obstruction Urinary Catheter Date of Insertion: 05/04/21 Urinary Catheter Time of Insertion: 11:10 Data : 05/06/21 04:28 05/06/21 04:28 A&P Assessment and plan (1) Pleural effusion, bilateral: Status: Acute (2) Transaminitis: Status: Acute (3) Cardiomyopathy: Status: Acute (4) Abdominal tenderness: Status: Acute (5) Acute encephalopathy: Status: Acute (6) UTI (urinary tract infection): Status: Acute (7) Dehydration: Status: Acute (8) CHF exacerbation: Status: Acute (9) Pulmonary edema: Status: Acute Plan Acute CHf exacerbation EF 20% Cardiomyopathy No previous angiogram, CHF or LA history Hypernatremia due to intravascular depletion, third spacing Pulmonary edema on x-ray Cardiology consulted Acute respiratory failure with hypercapnia and hypoxia Started on BiPAP Patient was obtunded this morning Continue empirical antibiotic coverage Intravascular depletion with hyponatremia with underlying CHF exacerbation: Guarded prognosis I am reluctant to add fluids at this point Acute kidney disease Hyperkalemia Started on diuretics, anticipating improvement Most likely cardiorenal, prerenal Obtain urine studies Abdominal transaminases, possible cystic duct obstruction, could be related to biliary sludge Afebrile, continue ceftriaxone Acute pulmonary embolism Currently on therapeutic Lovenox Tachycardic Patient does carry a guarded prognosis Patient is DNR/DNI discussed with her Attestations Medical Necessity Statement*: Continue hospitalization Time Spent in Patient Care: 35min Coding Level of Care Code Acute Machine Design Teacher for Chg Fwd Diagnoses Pleural effusion, bilateral J90 Transaminitis R74.01 Cardiomyopathy I42.9 Abdominal tenderness R10.819 Acute encephalopathy G93.40 UTI (urinary tract infection) N39.0 Dehydration E86.0 CHF exacerbation I50.9 Pulmonary edema J81.1
--- NOTE | 2021-05-06 14:28 | CT_ITS ---
WS: [id number] CT HEAD NONCONTRAST HISTORY: stroke TECHNIQUE: Contiguous axial imaging performed through the brain in 2.5 mm imaging. Bone and soft tiss ue windows. Sagittal and coronal reformats reviewed. All CT scans at [facility] use at least one of these dose optimization techniques: automated exposure control; mA and/or kV adjustment per pa tient size (includes targeted exams where dose is matched to clinical indication); or iterative recon struction. DLP: 1314.15 mGy.cm COMPARISON: 04/30/2021 No acute intracranial hemorrhage, midline shift or mass effect. Mild atrophy and mild chronic microvascular ischemic changes. Beam hardening artifact from motion art ifact at the skull base. Ventricles: Normal size with no hydrocephalus. No inferior displacement of cerebellar tonsils. Paranasal sinuses: As visualized are clear. Mastoid air cells: Well pneumatized. Calvarium and scalp: Skull is intact with no soft tissue edema or swelling. CT/CT head wo con* [id number] IMPRESSION: 1. Mild motion artifact. 2. No acute intracranial hemorrhage or edema. 3. Stable CT head since 04/30/2021.
--- NOTE | 2021-05-06 14:47 | PM.CONSULT ---
Providers/Reason For Consult Consulting Physician/Specialty*: Dr. Salas, cardiology Reason for Consult*: Newly diagnosed cardiomyopathy Attending Physician: Guido Wagner MD Primary Care Provider: ZACK Sanders History of Present Illness History of Present Illness Lauren Bishop is a 76 year old female Review of Systems Const: Reports: change in appetite, fatigue and malaise; Denies: fever(s) Eyes: Denies: change in vision or eye redness ENMT: Denies: throat pain, oral sores or ear or mastoid pain Card: Denies: chest pain, edema, pre-syncope or dyspnea on exertion Resp: Reports: dyspnea; Denies: productive cough, change in phlegm color or hemoptysis GI: Reports: nausea; Denies: abdominal pain, vomiting, diarrhea, constipation, hematochezia or melena : Denies: flank pain, urinary frequency or hematuria Musc: Denies: back pain, joint swelling or joint redness Skin/Breast: Denies: rash, sores or new lesions Neuro: Denies: headache(s), numbness in extremities, weakness in extremities, dizziness, confusion or seizure-like activity Endo: Denies: polydipsia Mahesh/Lymph: Denies: easy bleeding All/Imm: Denies: throat swelling Medications/Allergies Home Medications Medication Instructions Recorded Confirmed Last Taken Type naproxen 220 mg-pseudoephedrine 1 tab PO BID 03/11/21 04/29/21 Unknown History 120 mg ER tablet, extend release,12 hr (Aleve-D Sinus and Cold) cefdinir 300 mg capsule 300 mg PO BID #28 cap 04/22/21 04/29/21 04/28/21 Rx Allergies Allergy/AdvReac Type Severity Reaction Status Date / Time No Known Allergies Allergy Verified 04/29/21 14:37 Current Medications Generic Name Dose Route Start Last Admin Trade Name Freq PRN Reason Stop Dose Admin Acetaminophen 650 mg 04/29/21 18:29 05/05/21 21:08 Acetaminophen 325 Mg Tablet PO 650 mg Q6H PRN Administration Mild/Mod Pain Or Temp >/= 101 Acetaminophen 650 mg 05/02/21 16:52 05/04/21 08:43 Acetaminophen 650 Mg Supp [place] 650 mg Q4H PRN Administration MILD PAIN OR INCREASE TEMP Aspirin 300 mg 05/05/21 20:25 05/06/21 11:20 Aspirin 300 Mg Supp CA 300 mg DAILY RADU Administration Enoxaparin Sodium 50 mg 04/29/21 18:00 05/06/21 05:19 Enoxaparin 60 Mg/0.6 Ml Syringe SUBCUT 50 mg Q12H RADU Administration Imipenem/Cilastatin Sodium 250 100 mls @ 200 mls/hr 05/02/21 17:00 05/06/21 12:49 mg/ Sodium Chloride IV Infused Q6H RADU Infusion Protocol Caspofungin 50 mg/ Sodium 250 mls @ 250 mls/hr 05/03/21 19:30 05/05/21 20:01 Chloride IV Infused Q24H RADU Infusion Vancomycin HCl 1,000 mg/ 250 mls @ 250 mls/hr 05/05/21 16:30 05/05/21 18:24 Dextrose IV Infused Q24H RADU Infusion Protocol As Directed Levofloxacin/Dextrose 750 mg in 150 mls @ 100 mls/hr 05/05/21 20:15 05/05/21 23:10 Levaquin-D5w IV Infused Q24H RADU Infusion Protocol Ondansetron HCl 4 mg 05/02/21 14:06 05/03/21 03:53 Ondansetron 2 Mg/Ml Sdv 2 Ml IVP 4 mg Q4H PRN Administration NAUSEA AND VOMITING Pantoprazole Sodium 40 mg 05/06/21 09:00 05/06/21 11:21 Pantoprazole 40 Mg Sdv IVP 40 mg DAILY RADU Administration Trazodone HCl 25 mg 05/04/21 21:00 05/05/21 21:09 Trazodone 50 Mg Tablet PO 25 mg BEDTIME RADU Administration PFSH Acute PFSH: Medical History COVID Pneumonia Social History Smoking and tobacco status: never smoked Alcohol intake: never Substance/Drug Use: never Vitals/I&O/Wt Last Vital Signs Temp 97.8 F 05/06/21 11:57 Pulse 111 H 05/06/21 11:57 Resp 17 05/06/21 11:57 BP 109/68 05/06/21 11:57 Pulse Ox 96 05/06/21 11:57 05/05/21 05/06/21 05/06/21 22:59 06:59 14:59 Intake Total 720 / 850 350 / 1200 100 / 100 Output Total 225 / 225 Balance 720 / 850 125 / 975 100 / 100 Weight last 48 hrs Weight 135 lb 14.4 oz Weight 132 lb 1.6 oz Physical Exam Narrative: GENERAL: Averagely built and averagely nourished in no acute distress HEENT: Extraocular movement intact. Pupils equal round reactive to light. No pallor or icterus. NECK: central trachea, [] JVD, [] abdominojugular reflex. No carotid bruit. CARDIOVASCULAR SYSTEM: S1-S2 regular. No S3 or S4 present. [No murmur rubs or gallops.] RESPIRATORY SYSTEM: Chest clear to auscultation. No wheezes rhonchi or rubs heard. [] No use of accessory muscles. ABDOMEN: Soft, nontender and nondistended. Normal bowel sounds present. No hepatosplenomegaly appreciated. [] EXTREMITIES: No cyanosis or clubbing. [No edema]. No signs of chronic venous insufficiency. 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 No focal neurological deficits. Cranial nerves intact. [] SKIN: Normal turgor and temperature. No breakdown, rash or nail changes noted. [] PSYCH: Normal insight and judgment. No suicidal or homicidal ideations. 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
[2021-05-06] MEDS: FUROsemide 10 mg/mL SDV 4mL 40 MG IVP (15:15)
[2021-05-06] MEDS: insulin regular-human 10 UNIT in SYRINGE 1 EACH IVP (15:16)
[2021-05-06] MEDS: dextrose 10% 125 ML 250 ML IV (15:16)
[2021-05-06 15:41] LABS: Vancomycin Trough 21.8 ug/mL (10-15)
[2021-05-06 15:46] LABS: Arterial Blood Gas Hematocrit 39.9 % (37-47); Base Excess ABG -8.2 mmol/L (-2.0-2.0); Blood Gas Operator Identificat AMH; Blood Gas Sample Site Brachial, right; Blood Gas Sample Type Arterial; HCO3 ABG 22.7 mmol/L (22-26); Oxygen Device NC
[2021-05-06 15:48] LABS: ABG PCO2 73.1 mmHg (35-45)
[2021-05-06 18:20] LABS: ABG PCO2 48.8 mmHg (35-45); ABG PH Result 7.26 (7.35-7.45); Base Excess ABG -5.2 mmol/L (-2.0-2.0); Blood Gas Operator Identificat AMH; Blood Gas Sample Site Brachial, right; Blood Gas Sample Type Arterial; Oxygen Device BIPAP; PO2 ABG 98.4 mmHg (80.0-100.0)
[2021-05-06] MEDS: enoxaparin 60 mg/0.6 mL Syringe SUBCUT (18:32)
[2021-05-06] MEDS: levofloxacin-dextrose 5 % 750 MG/150 ML PREMIX 100 MG IV (19:52)
[2021-05-06 21:02] LABS: Uric Acid 9.8 mg/dL (2.4-5.7)
[2021-05-06] MEDS: dextrose 5% 1,000 ML 30 ML IV (21:10)
[2021-05-07] VITALS (14 sets, daily range): BP systolic 95–119; BP diastolic 58–80; PULSE 96–131; RESP 15–24; TEMP 36.6–37.1; O2SAT 92–97
[2021-05-07 05:05] LABS: Basophils % 0.3 %; Eosinophils # 0.2 10^3/uL (0.0-0.8); Eosinophils % 1.1 %; Hematocrit 40.8 % (37.0-47.0); Hemoglobin 11.8 g/dL (11.5-15.3); Lymphocytes # 0.6 10^3/uL (0.8-4.8); Lymphocytes % 4.2 %; Mean Corpuscular HGB Conc 28.9 g/dL (30.0-36.0); Mean Corpuscular Hemoglobin 30.9 pg (28.0-34.0); Mean Corpuscular Volume 106.8 fl (81-99); Mean Platelet Volume 9.6 fL (7.4-10.4); Monocytes # 0.8 10^3/uL (0.2-0.9); Monocytes % 5.3 %; Neutrophils # 12.45 10^3/uL (1.8-7.7); Neutrophils % 86.1 %; Nucleated Red Blood Cells # 0.1 /100WBC; Nucleated Red Blood Cells % 0.6 %; Platelet Count 198 10^3/cmm (130-400); Red Blood Count 3.82 10^6/uL (4.1-5.3); Red Cell Distribution Width 17.2 % (12.1-15.1); White Blood Count 14.5 10^3/uL (4.0-10.0)
[2021-05-07] MEDS: enoxaparin 60 mg/0.6 mL Syringe SUBCUT ×2 (05:17→17:31)
[2021-05-07 05:29] LABS: Anion Gap 10.4 (5-19); Blood Urea Nitrogen 39 mg/dL (8-23); Calcium 8.4 mg/dL (8.5-10.5); Carbon Dioxide 26 mmol/L (22-29); Chloride 123 mmol/L (98-107); Glucose 100 mg/dL (65-115); Osmolality Calculated 329 mOsm/kg (285-295); Potassium 4.4 mmol/L (3.5-5.1); Sodium 155 mmol/L (136-145)
[2021-05-07] MEDS: FUROsemide 10 mg/mL SDV 4mL 40 MG IVP (08:15)
[2021-05-07] MEDS: pantoprazole 40 mg SDV IVP (08:15)
--- NOTE | 2021-05-07 09:10 | PM.PN ---
Subjective Subjective: This morning I spoke with her and her daughter who are at the bedside Sodium is 255 She did make good urine after getting diuretics This morning she is opening her eyes to verbal stimuli however no meaningful/purposeful movement noted, she lifts her left arm to painful stimuli, right side of her body is pretty flaccid She is not able to eat on her own I will go ahead and start D5, will discuss case with Dr. Frye Family is leaning towards comfort measures if she does not show meaningful recovery next 24 h for now continue BiPAP and D5 regimen, repeat chest x-ray around 2:00PM Continue IV antibiotics Poor candidate for coronary angiogram, Vitals/I&O/Wt Last Vital Signs Temp 98.4 F 05/07/21 07:29 Pulse 114 H 05/07/21 07:34 Resp 15 05/07/21 07:29 BP 95/58 05/07/21 07:29 Pulse Ox 95 05/07/21 07:29 05/06/21 05/07/21 05/07/21 22:59 06:59 14:59 Intake Total 375.1 / 475.1 450 / 925.1 Output Total 1600 / 1600 Balance 375.1 / 475.1 -1150 / -674.9 Weight last 48 hrs Weight 60.691 kg Weight 61.643 kg Physical Exam Narrative: Patient is obtunded, opens her eyes to verbal commands Lifts her left arm to painful stimuli Right side is flaccid, Not able to eat Lower extremity no signs of edema however her breathing is labored off BiPAP, I put her back on BiPAP this morning settings 12/6 FiO2 30% respiratory rate 15 She is breathing 20 breaths/min Variable S1-S2, tachyarrhythmia Soft abdomen Today she looks more dehydrated as compared to fluid overload, Urinary Catheter Management: Perdue: Cath Placed During This Visit: yes Reason for Continuing Indwelling Catheter: Acute Urinary Retention or Obstruction Urinary Catheter Date of Insertion: 05/04/21 Urinary Catheter Time of Insertion: 11:10 Data : 05/07/21 04:19 05/07/21 04:19 A&P Assessment and plan (1) Pulmonary edema: Status: Acute (2) CHF exacerbation: Status: Acute (3) Pleural effusion, bilateral: Status: Acute (4) Transaminitis: Status: Acute (5) Cardiomyopathy: Status: Acute (6) Cardiomegaly: Status: Acute (7) Abdominal tenderness: Status: Acute (8) Acute encephalopathy: Status: Acute (9) UTI (urinary tract infection): Status: Acute (10) Pulmonary emboli: Status: Acute (11) Pneumonia: Status: Acute (12) Dehydration: Status: Acute Plan Acute systolic congestive heart exacerbation Pulm edema requiring BiPAP Acute hypoxic hypercapnic respiratory failure: On BiPAP, related to underlying pulmonary edema Repeat chest x-ray today Her CHF exacerbation management is complicated because of underlying dehydration and hypernatremia, I would avoid use of albumin because of high sodium content and risk of worsening of underlying volume overloaded state, she did make good urine with use of Lasix yesterday, I will restart D5 at lower rate today Nephro is consulted No signs of stroke on CT head without contrast She has right-sided flaccid paralysis Only moving left arm to painful stimuli Currently BiPAP dependent not able to eat at all which is exacerbating her dehydration Poor ejection fraction, not an ideal candidate for coronary angiogram, family is doing towards comfort care if she is not making good progress in next 24 to 36 h, Right now she is DNR/DNI Obtain urine studies Continue broad-spectrum antibiotics for underlying pneumonia Currently she is on therapeutic dose of Lovenox for PE Family meeting conducted Questions were answered to their satisfaction Guarded prognosis Attestations Medical Necessity Statement*: Guarded prognosis Continue hospitalization Time Spent in Patient Care: 35 Coding Level of Care Code Acute 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
--- NOTE | 2021-05-07 09:18 | XR_ITS ---
WS: [id number] PORTABLE CHEST HISTORY: Pulmonary edema. COMPARISON: 05/06/2021 Scattered bilateral pulmonary opacifications. Diffuse interstitial thickening and more focal consolid ations at the RIGHT lung base and mid LEFT lung. No recent improvement. Small bilateral pleural effus ions. Biapical pleural thickening is stable. Cardiac size: Moderately enlarged cardiac silhouette. Mediastinum/Aorta: Mild atherosclerosis aorta. Osteopenia. XR/XR chest 1V portable [id number] IMPRESSION: 1. Diffuse bilateral interstitial thickening and scattered consolidations. Con sistent with pneumonia and pneumonitis. Component of CHF not excluded. Please n ote some of the opacifications have improved while others have progressed. 2. Cardiomegaly unchanged.
--- NOTE | 2021-05-07 09:25 | PC.SOCIAL ---
IMM Update pg 2 of IMM updated and reviewed w/ patients daughter and . Copy provided and copy placed in chart.
--- NOTE | 2021-05-07 09:31 | P.CONIM_ITS ---
Providers/Reason For Consult Consulting Physician/Specialty*: Dr. Salas, cardiology Reason for Consult*: Newly diagnosed cardiomyopathy Attending Physician: Guido Wagner MD Primary Care Provider: ZACK Sanders History of Present Illness History of Present Illness Lauren Bishop is a 76 year old female who presented with complaints of vomiting shortness of breath feeling fatigued and fluid intake. She was treated for pneumonia as an outpatient back in April. She was tested for COVID-19 that was negative. She was found to have leukocytosis and mildly abnormal liver enz ymes on arrival.CT chest was done which showed bilateral multiple small filling defects within the pulmonary arteries and bilateral lower lobe pleural effusions. Bilateral pneumonia was noted as well. CT head was done which showed no evidence of intracranial hemorrhage or mass. She was treated with broad-spectrum antibiotics for pneumonia and UTIU. transthoracic echocardiogram was done that showed severely decreased left ventricle systolic function. She also received fluids for hypernatremia. I have been asked to evaluate the patient for the same. Prior to this illness patient was very active. Currently she has been altered for the last 2 3 days. She was started on IV Lasix as well was placed on BiPAP yesterday. Chest x-ray done yesterday showed cardiopulmonary megaly with pulmon yony vascular congestion. Repeat CT scan of head did not show any acute intracranial hemorrhage or edema. History was mostly obtained from patient's chart. Patient's and daughter were present bedside at the time of evaluation. Urine output and last 24 hours of 1600 is -600 mL. She does not have any prior known cardiac history. No prior stress testing or echocardiogram. ABG showed pH of 7.26, PCO2 49, PO2 98 on BiPAP at FiO2 of 30%. Review of Systems General: Reports: ROS unobtainable due to medical condition and ROS unobtainable due to mental status Medications/Allergies Home Medications Medication Instructions Recorded Confirmed Last Taken Type naproxen 220 mg-pseudoephedrine 1 tab PO BID 03/11/21 04/29/21 Unknown History 120 mg ER tablet, extend release,12 hr (Aleve-D Sinus and Cold) cefdinir 300 mg capsule 300 mg PO BID #28 cap 04/22/21 04/29/21 04/28/21 Rx Allergies Allergy/AdvReac Type Severity Reaction Status Date / Time No Known Allergies Allergy Verified 04/29/21 14:37 Current Medications Generic Name Dose Route Start Last Admin Trade Name Freq PRN Reason Stop Dose Admin Acetaminophen 650 mg 04/29/21 18:29 05/05/21 21:08 Acetaminophen 325 Mg Tablet PO 650 mg Q6H PRN Administration Mild/Mod Pain Or Temp >/= 101 Acetaminophen 650 mg 05/02/21 16:52 05/04/21 08:43 Acetaminophen 650 Mg Supp [place] 650 mg Q4H PRN Administration MILD PAIN OR INCREASE TEMP Aspirin 300 mg 05/05/21 20:25 05/06/21 11:20 Aspirin 300 Mg Supp [place] 300 mg DAILY RADU Administration Enoxaparin Sodium 60 mg 05/06/21 18:00 05/07/21 05:17 Enoxaparin 60 Mg/0.6 Ml Syringe SUBCUT 60 mg Q12H RADU Administration Imipenem/Cilastatin Sodium 250 100 mls @ 200 mls/hr 05/02/21 17:00 05/07/21 05:48 mg/ Sodium Chloride IV Infused Q6H RADU Infusion Protocol Levofloxacin/Dextrose 750 mg in 150 mls @ 100 mls/hr 05/05/21 20:15 05/06/21 21:22 Levaquin-D5w IV Infused Q24H RADU Infusion Protocol Vancomycin HCl 750 mg/ 250 mls @ 250 mls/hr 05/06/21 20:00 05/06/21 23:43 Dextrose IV Infused Q24H RADU Infusion Protocol Ondansetron HCl 4 mg 05/02/21 14:06 05/03/21 03:53 Ondansetron 2 Mg/Ml Sdv 2 Ml IVP 4 mg Q4H PRN Administration NAUSEA AND VOMITING Pantoprazole Sodium 40 mg 05/06/21 09:00 05/07/21 08:15 Pantoprazole 40 Mg Sdv IVP 40 mg DAILY RADU Administration Trazodone HCl 25 mg 05/04/21 21:00 05/06/21 21:08 Trazodone 50 Mg Tablet PO Not Given BEDTIME RADU PFSH Acute PFSH: Medical History COVID Pneumonia Social History Smoking and tobacco status: never smoked Alcohol intake: never Substance/Drug Use: never Vitals/I&O/Wt Last Vital Signs Temp 98.4 F 05/07/21 07:29 Pulse 114 H 05/07/21 07:34 Resp 15 05/07/21 07:29 BP 95/58 05/07/21 07:29 Pulse Ox 95 05/07/21 07:29 05/06/21 05/07/21 05/07/21 22:59 06:59 14:59 Intake Total 375.1 / 475.1 450 / 925.1 Output Total 1600 / 1600 Balance 375.1 / 475.1 -1150 / -674.9 Weight last 48 hrs Weight 133 lb 12.8 oz Weight 135 lb 14.4 oz Physical Exam Narrative: GENERAL: Averagely built and averagely nourished, HEENT: No pallor or icterus. NECK: Mild JVD CARDIOVASCULAR SYSTEM: S1-S2 regular. Tachycardia present; Grade 3 on 6 left lower sternal border systolic murmur present RESPIRATORY SYSTEM: Coarse bilateral breath sounds, decreased at bases ABDOMEN: Soft, nontender and nondistended. EXTREMITIES: Trace edema. Extremities warm to touch. 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 Response to her name by opening her eyes . No other meaningful response Urinary Catheter Management: Perdue: Cath Placed During This Visit: yes Reason for Continuing Indwelling Catheter: Acute Urinary Retention or Obstruction Urinary Catheter Date of Insertion: 05/04/21 Urinary Catheter Time of Insertion: 11:10 Data : 05/07/21 04:19 05/07/21 04:19 Other data: Transthoracic echocardiogram 05 May 2021 ?CONCLUSIONS ?1. Mildly increased left ventricular cavity size. Severely ?decreased left ventricular systolic function. Left ventricular ?ejection fraction is estimated at 20 %.? Severe global ?hypokinesis.? Abnormal septal motion consistent with conduction ?abnormality. ?2. Normal right ventricular size and systolic function. ?3. Mild to moderate posteriorly directed mitral valve ?regurgitation. ?4. Moderate tricuspid valve regurgitation. ?5. Moderate pulmonary hypertension with pulmonary pressure ?estimated at 49 mmHg. ?6.? No prior similar studies to compare. EKG sinus tachycardia left bundle branch block. A&P Assessment and plan (1) Pulmonary edema: Agree with IV diuretics -May need to uptitrate based on her response. -Blood pressure remains soft I had a long discussion with patient's family and based on clinical progression the decision for further cardiac work-up will be made. -At this time patient prognosis remains guarded. Recommend placing her back on telemetry. -On BiPAP present -At this time is DNR/DNI. Seems that patient's family is inclined towards comfort care. Status: Acute (2) CHF exacerbation: Status: Acute (3) Pleural effusion, bilateral: Status: Acute (4) Cardiomyopathy: Status: Acute (5) Acute encephalopathy: Status: Acute (6) Pneumonia: Antibiotics as per primary team Status: Acute Qualifiers: Pneumonia type: due to unspecified organism Laterality: bilateral Lung location: lower lobe of lung Qualified Code(s): J18.9 - Pneumonia, unspecified organism Plan Hypernatremia Moderate tricuspid valve regurgitation Mild to moderate mitral valve regurgitation Moderate pulmonary hypertension Left bundle branch block Elevated troponin in setting of decompensated congestive heart failure' Bilateral pulmonary embolism Thank you for allowing me to participate in patient's care. Please feel free to call with questions or concerns. 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
[2021-05-07] MEDS: aspirin 300 mg Supp PR (09:45)
[2021-05-07 13:16] LABS: Ammonia 28 umol/L (11-51)
--- NOTE | 2021-05-07 13:25 | P.CONIM_ITS ---
Providers/Reason For Consult Consulting Physician/Specialty*: Nephro Reason for Consult*: hypernatremia Attending Physician: Guido Wagner MD Primary Care Provider: ZACK Sanders History of Present Illness History of Present Illness Thank for consultation, today had the pleasure reviewing this 76-year-old female for evaluation and management of hypernatremia. She was in relatively decent health until presentation, where she was admitted with fatigue, shortness of breath, poor oral intake. She has been on a course of antibiotics for pneumonia prior to presentation but symptoms got worse and subsequently she presented to our facility. Initial CTA demonstrated bilateral small pulmonary emboli, lower lobe pleural effusion and bilateral pneumonia. She has received combination antibiotics, however, since this time she has progressively deteriorated. She is now minimally vocal, minimally interactive. She is maintaining her oxygen levels on noninvasive ventilation. Echocardiogram was performed which demonstrates ejection fraction 20% and diffuse left ve ntricular hypokinesis. Her family report that she really has very little medical history, no known heart disease, lung disease, kidney disease. Renal function remains relatively stable over the last few days, sodium has now drifted up to 155. Per RN: Minimal extremity edema at this time. Urine output is noted to be 1600 mL. She is currently on Lasix intravenously twice daily. Currently, no oral intake and all medications are received intravenously or subcutaneously. Review of Systems Narrative: unobtainable Medications/Allergies Home Medications Medication Instructions Recorded Confirmed Last Taken Type naproxen 220 mg-pseudoephedrine 1 tab PO BID 03/11/21 04/29/21 Unknown History 120 mg ER tablet, extend release,12 hr (Aleve-D Sinus and Cold) cefdinir 300 mg capsule 300 mg PO BID #28 cap 04/22/21 04/29/21 04/28/21 Rx Allergies Allergy/AdvReac Type Severity Reaction Status Date / Time No Known Allergies Allergy Verified 04/29/21 14:37 Current Medications Generic Name Dose Route Start Last Admin Trade Name Freq PRN Reason Stop Dose Admin Acetaminophen 650 mg 04/29/21 18:29 05/05/21 21:08 Acetaminophen 325 Mg Tablet PO 650 mg Q6H PRN Administration Mild/Mod Pain Or Temp >/= 101 Acetaminophen 650 mg 05/02/21 16:52 05/04/21 08:43 Acetaminophen 650 Mg Supp MT 650 mg Q4H PRN Administration MILD PAIN OR INCREASE TEMP Aspirin 300 mg 05/05/21 20:25 05/07/21 09:45 Aspirin 300 Mg Supp MT 300 mg DAILY RADU Administration Enoxaparin Sodium 60 mg 05/06/21 18:00 05/07/21 05:17 Enoxaparin 60 Mg/0.6 Ml Syringe SUBCUT 60 mg Q12H RADU Administration Imipenem/Cilastatin Sodium 250 100 mls @ 200 mls/hr 05/02/21 17:00 05/07/21 10:56 mg/ Sodium Chloride IV Infused Q6H RADU Infusion Protocol Vancomycin HCl 750 mg/ 250 mls @ 250 mls/hr 05/06/21 20:00 05/06/21 23:43 Dextrose IV Infused Q24H RADU Infusion Protocol Ondansetron HCl 4 mg 05/02/21 14:06 05/03/21 03:53 Ondansetron 2 Mg/Ml Sdv 2 Ml IVP 4 mg Q4H PRN Administration NAUSEA AND VOMITING Pantoprazole Sodium 40 mg 05/06/21 09:00 05/07/21 08:15 Pantoprazole 40 Mg Sdv IVP 40 mg DAILY RADU Administration Trazodone HCl 25 mg 05/04/21 21:00 05/06/21 21:08 Trazodone 50 Mg Tablet PO Not Given BEDTIME RADU PFSH Acute PFSH: Medical History COVID Pneumonia Social History Smoking and tobacco status: never smoked Alcohol intake: never Substance/Drug Use: never Vitals/I&O/Wt Last Vital Signs Temp 98.7 F 05/07/21 11:40 Pulse 108 H 05/07/21 12:28 Resp 19 H 05/07/21 11:40 BP 106/70 05/07/21 11:40 Pulse Ox 95 05/07/21 11:40 05/06/21 05/07/21 05/07/21 22:59 06:59 14:59 Intake Total 375.1 / 475.1 450 / 925.1 100 / 100 Output Total 1600 / 1600 Balance 375.1 / 475.1 -1150 / -674.9 100 / 100 Weight last 48 hrs Weight 60.691 kg Weight 61.643 kg Physical Exam Narrative: 1. Hypernatremia Sodium 155, wt 60.691; free water deficit 2.9L Currently on Lasix twice daily, continue this therapy. Ideally I had like to transition his to thiazides once we are able to give oral medication (Lasix will deplete renal medullary concentration gradient and the counter current mechanism for urine concentration, an affect not seen with thiazide diuretics, hence, Lasix tends to aquarese more so than thiazides). Continue D5W, bolus of 200 mL/h. Free water flushes if Dobbhoff is placed 2. Renal function Creatinine 1.1, mild bump in renal function, close monitoring during active diuresis 3. Pneumonia Cultures so far negative, unrevealing, currently on Primaxin, vancomycin, Levaquin 4. Heart failure Cardiology input is appreciated, currently on diuretic therapy, possible ischemic work-up down the road depending on how she does. 5. Altered mental status Profoundly altered mental status given pneumonia and heart failure but no other obvious etiology. Will send ammonia. Consider LP/AED/neuro evaluation Guarded prognosis Case discussed with family members at bedside, answering all of the questions to their satisfaction. 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
--- NOTE | 2021-05-07 13:47 | MR_ITS ---
WS: [id number] MRI HEAD WITHOUT CONTRAST TECHNIQUE: Sagittal T1, T2 axial, T2 axial FLAIR, axial and coronal T1 images, axial susceptibility w eighted imaging, axial diffusion weighted images, and coronal T2 images were obtained. CLINICAL INFORMATION: Stroke COMPARISON: CT May 06, 2021 FINDINGS: Somewhat limited study due to motion artifact. FAST imaging was performed. No evidence of restricted diffusion to suggest acute ischemia. Ventricular system and basal cisterns are patent. Moderate small vessel changes with moderate parenchymal volume loss. No extra-axial fluid collections. No evidence of mass or mass effect. No hemosiderin on susceptibly weighted images. Norm al optic chiasm and pituitary infundibulum. Moderate symmetric atrophy temporal lobes and hippocampal formations. MR/MR head wo con* [id number] IMPRESSION: Exam is somewhat limited due to motion artifact. FAST imaging was p erformed. 1. No evidence of restricted diffusion to suggest acute ischemia. 2. Moderate small vessel changes with moderate parenchymal volume loss. 3. No hemosiderin on susceptibly weighted images. 4. No acute intracranial findings.
[2021-05-07 14:32] LABS: Anti-Double Strand DNA AB <1 IU/mL; SS A Ro Sjogrens Antibody <1.0 NEG AI (<1.0 NEG); SS-B/LA IGG <1.0 NEG AI (<1.0 NEG); Sm/RNP Antibody <1.0 NEG AI (<1.0 NEG); Smith Antibody <1.0 NEG AI (<1.0 NEG)
[2021-05-07 15:12] LABS: Prolactin 80.28 ng/mL (4.8-23.3)
[2021-05-07 16:43] LABS: Anti-Nuclear Antibody Screen NEGATIVE (NEGATIVE)
[2021-05-07 16:51] LABS: Anion Gap 11.8 (5-19); Blood Urea Nitrogen 38 mg/dL (8-23); Calcium 8.5 mg/dL (8.5-10.5); Carbon Dioxide 26 mmol/L (22-29); Chloride 122 mmol/L (98-107); Glucose 111 mg/dL (65-115); Osmolality Calculated 332 mOsm/kg (285-295); Potassium 3.8 mmol/L (3.5-5.1); Sodium 156 mmol/L (136-145)
[2021-05-07] MEDS: FUROsemide 10 mg/mL SDV 2mL 20 MG IVP (17:30)
[2021-05-07 20:47] LABS: Urine Creatinine 18 mg/dL (28-217); Urine Random Chloride 147 mmol/L; Urine Random Sodium 108 mmol/L
[2021-05-07 21:40] LABS: Adenovirus Not Detected (NOT DETECT); Chlamydia Pneumoniae Not Detected (NOT DETECT); Coronavirus 229E,HKU1,NL63,OC4 Not Detected (NOT DETECT); Human Metapneumovirus Not Detected (NOT DETECT); Human Rhinovirus/Enterovirus Not Detected (NOT DETECT); Influenza A Not Detected (NOT DETECT); Influenza A H1 Not Detected (NOT DETECT); Influenza A H1-2009 Not Detected (NOT DETECT); Influenza A H3 Not Detected (NOT DETECT); Influenza B Not Detected (NOT DETECT); Mycoplasma Pneumoniae Not Detected (NOT DETECT); Parainfluenza Virus Type 1 Not Detected (NOT DETECT); Parainfluenza Virus Type 2 Not Detected (NOT DETECT); Parainfluenza Virus Type 3 Not Detected (NOT DETECT); Parainfluenza Virus Type 4 Not Detected (NOT DETECT); Respiratory Syncytial Virus A Not Detected (NOT DETECT); Respiratory Syncytial Virus B Not Detected (NOT DETECT); SARS-COV-2 Not Detected (NOT DETECT)
[2021-05-08] VITALS (10 sets, daily range): BP systolic 104–119; BP diastolic 67–78; PULSE 88–130; RESP 15–21; TEMP 36.4–37.1; O2SAT 92–98
[2021-05-08] MEDS: dextrose 5% 1,000 ML 100 ML IV (04:03)
[2021-05-08] MEDS: FUROsemide 10 mg/mL SDV 2mL 20 MG IVP ×2 (05:12→09:29)
[2021-05-08 05:34] LABS: Basophils % 0.2 %; Eosinophils # 0.2 10^3/uL (0.0-0.8); Eosinophils % 1.8 %; Hematocrit 41.4 % (37.0-47.0); Lymphocytes # 0.6 10^3/uL (0.8-4.8); Lymphocytes % 4.2 %; Mean Corpuscular Hemoglobin 30.9 pg (28.0-34.0); Mean Corpuscular Volume 106.7 fl (81-99); Mean Platelet Volume 9.6 fL (7.4-10.4); Monocytes # 0.6 10^3/uL (0.2-0.9); Monocytes % 4.7 %; Neutrophils # 11.53 10^3/uL (1.8-7.7); Neutrophils % 85.6 %; Nucleated Red Blood Cells % 0.3 %; Platelet Count 162 10^3/cmm (130-400); Red Blood Count 3.88 10^6/uL (4.1-5.3); Red Cell Distribution Width 17.2 % (12.1-15.1); White Blood Count 13.5 10^3/uL (4.0-10.0)
[2021-05-08 05:51] LABS: Blood Urea Nitrogen 30 mg/dL (8-23); Calcium 8.3 mg/dL (8.5-10.5); Carbon Dioxide 28 mmol/L (22-29); Chloride 119 mmol/L (98-107); Glucose 147 mg/dL (65-115); Osmolality Calculated 333 mOsm/kg (285-295); Sodium 157 mmol/L (136-145)
[2021-05-08 05:52] LABS: Anion Gap 13.1 (5-19); Potassium 3.1 mmol/L (3.5-5.1)
--- NOTE | 2021-05-08 08:00 | FL_ITS ---
WS: [id number] LUMBAR PUNCTURE CLINICAL INFORMATION: encephalopathy COMPARISON: None. TECHNIQUE: Informed consent: The procedure and its potential risk and complications were discussed with the mayra ent. Verbal and written consent was obtained. Timeout: A timeout was performed to confirm correct patient, procedure, and site. Patient was prepped and draped in the usual sterile fashion. Lidocaine 1% was used for local anesthes ia. Utilizing fluoroscopic guidance, a 3.5 inch 22-gauge spinal needle was advanced into the subarach noid space at L3-L4 via LEFT oblique sublaminar approach. Free flow of clear CSF was obtained. 13 cc of CSF was collected and sent the lab for further analysis. FLUOROSCOPIC TIME: 1.2 minutes. FL/FL guided lumbarpunc dx* [id number] IMPRESSION: Fluoroscopically guided lumbar puncture. No immediate complications
--- NOTE | 2021-05-08 08:35 | P.PN_ITS ---
Subjective Subjective: This morning patient is on BiPAP, she is able to open her eyes to painful stimuli, she is moving all of her extremities today, she is able to fold her leg without any stimulus as well Still obtunded Family is agreeable with PPN MRI results were shared with the family Plan for lumbar puncture today as well, held Lovenox yesterday I have started her on Keppra after reviewing higher prolactin level However did not notice any seizure-like activity or myoclonus or nystagmus She is afebrile, sodium has worsened Asked pharmacy to run medications with the D5 insert normal saline Vitals/I&O/Wt Last Vital Signs Temp 98.4 F 05/08/21 08:00 Pulse 88 05/08/21 08:00 Resp 18 05/08/21 08:00 BP 112/67 05/08/21 08:00 Pulse Ox 97 05/08/21 08:00 05/07/21 05/08/21 05/08/21 22:59 06:59 14:59 Intake Total 460 / 560 200 / 760 Output Total 2200 / 3700 Balance 460 / -940 -2000 / -2940 Weight last 48 hrs Weight 58.559 kg Weight 60.691 kg Physical Exam Narrative: Patient is opening eyes to painful stimuli Currently on BiPAP Looks euvolemic today Left arm is swollen She is moving her extremities to painful stimuli I did not appreciate myoclonus or nystagmus of eyes Pupils are equal and reactive to light She is not able to follow commands Variable S1-S2 sinus tachycardia Soft abdomen Urinary Catheter Management: Perdue: Cath Placed During This Visit: yes Reason for Continuing Indwelling Catheter: Other Urinary Catheter Date of Insertion: 05/04/21 Urinary Catheter Time of Insertion: 11:10 Data : 05/08/21 05:11 05/08/21 05:11 A&P Assessment and plan (1) Pulmonary edema: Status: Acute (2) CHF exacerbation: Status: Acute (3) Pleural effusion, bilateral: Status: Acute (4) Transaminitis: Status: Acute (5) Cardiomyopathy: Status: Acute (6) Acute encephalopathy: Status: Acute (7) UTI (urinary tract infection): Status: Acute (8) Pneumonia: Status: Acute (9) Acute dehydration: Status: Acute (10) Hypernatremia: Status: Acute (11) Pulmonary embolism: Status: Acute Plan Acute systolic congestive heart exacerbation: This morning patient looks euvolemic Cut back on diuretics For primary edema currently on BiPAP, she is obtunded, she gets very tachypneic when off BiPAP with her breathing 20-25, would continue her BiPAP for now Appreciate cardiology recommendations Not an appropriate candidate for coronary angiogram at this point considering her obtunded state Dehydration secondary to poor p.o. intake Hypernatremia Start PPN at 10 mL/h and increase by 10 mL every 8 hours with goal 42 mL/h TPN order has been signed this morning Metabolic encephalopathy related to hypernatremia and pneumonia No signs of stroke Does not have typical meningitis signs Leukocytosis trending down Afebrile She is moving all of her extremities to painful stimuli MRI head unremarkable We will obtain CSF with lumbar puncture today High prolactin: No witnessed seizure-like activity, start her on Keppra Continue IV antibiotics Ammonia level is normal Glucose 147 Community-acquired pneumonia Covid PCR was repeated yesterday which is negative Continue IV antibiotics Hypokalemia: Repleted Cardiorenal RENETTA: Improved Guarded prognosis Start PPN DNR/DNI Family meeting conducted this morning as well Attestations Medical Necessity Statement*: Continue hospitalization Time Spent in Patient Care: 30min Coding Level of Care Code Acute Forest Fire Officer for g Fwd Diagnoses Pulmonary edema J81.1 CHF exacerbation I50.9 Pleural effusion, bilateral J90 Transaminitis R74.01 Cardiomyopathy I42.9 Acute encephalopathy G93.40 UTI (urinary tract infection) N39.0 Pneumonia J18.9 Acute dehydration E86.0 Hypernatremia E87.0 Pulmonary embolism I26.99
[2021-05-08] MEDS: potassium chloride premix 100 ML 25 MEQ IV (09:28)
[2021-05-08] MEDS: pantoprazole 40 mg SDV IVP (09:30)
--- NOTE | 2021-05-08 14:40 | PM.PN ---
Subjective Subjective: Ms. Bishop remains overtly confused, very poorly interactive. Very robust urine output, made 5.2 L yesterday, remains on Lasix twice daily. Renal function remained stable, sodium level if continues to drift up. Vitals/I&O/Wt Last Vital Signs Temp 98.7 F 05/08/21 12:00 Pulse 103 H 05/08/21 12:00 Resp 18 05/08/21 12:00 BP 112/67 05/08/21 12:00 Pulse Ox 96 05/08/21 12:00 05/07/21 05/08/21 05/08/21 22:59 06:59 14:59 Intake Total 460 / 560 200 / 760 1110 / 1110 Output Total 2200 / 3700 3000 / 3000 Balance 460 / -940 -2000 / -2940 -1890 / -1890 Weight last 48 hrs Weight 58.559 kg Weight 60.691 kg Physical Exam Narrative: Constitutional: Minimally interactive HEENT: Wet mucosa, no jvp, non icteric Lungs: Bilaterally clear without discernible wheeze, rales in all lung zones CVS: S1 S2, no murmurs Abdo: Soft, BS ok Ext 4: Minimal edema, peripheral perfusion with no cyanosis Neurological: Grossly non-focal Urinary Catheter Management: Perdue: Cath Placed During This Visit: yes Reason for Continuing Indwelling Catheter: Other Urinary Catheter Date of Insertion: 05/04/21 Urinary Catheter Time of Insertion: 11:10 Data : 05/08/21 05:11 05/08/21 05:11 A&P Assessment and plan (1) Hypernatremia: 1. Hypernatremia Sodium 157, wt 60.691; free water deficit 3.3L High urine output even in the setting of IV Lasix, suggesting that this may have an element of diabetes insipidus. We will cut back on diuretics at this time and increase D5W to 150mL/hr Free water flushes if Dobbhoff is placed 2. Renal function Creatinine looks great 3. Pneumonia Cultures so far negative, unrevealing, currently on Primaxin, vancomycin, Levaquin 4. Heart failure Cardiology input is appreciated, possible ischemic work-up down the road depending on how she does. 5. Altered mental status Profoundly altered mental status given pneumonia and heart failure but no other obvious etiology. MRI looks ok. Mgmt per gen medicine Case discussed with family members at bedside, answering all of the questions to their satisfaction. Talat Fisher MD Nephrology [phone] Patient seen and examined via telemedicine, with the assistance of the bedside RN > 25 min spent in evaluation and mgmt of patient Status: Acute Attestations Medical Necessity Statement*: eval for hypernatremia Coding Level of Care Code Acute Prosthetic Assistant for [facility] Fw Diagnoses Hypernatremia E87.0
--- NOTE | 2021-05-08 17:05 | P.PN_ITS ---
Subjective Subjective: remains confused. Medications: Reviewed: Yes Vitals/I&O/Wt Last Vital Signs Temp 98.7 F 05/08/21 12:00 Pulse 103 H 05/08/21 12:00 Resp 18 05/08/21 12:00 BP 112/67 05/08/21 12:00 Pulse Ox 96 05/08/21 12:00 05/08/21 05/08/21 05/08/21 06:59 14:59 22:59 Intake Total 200 / 760 1110 / 1110 100 / 1210 Output Total 2200 / 3700 3000 / 3000 Balance -2000 / -2940 -1890 / -1890 100 / -1790 Weight last 48 hrs Weight 129 lb 1.6 oz Weight 133 lb 12.8 oz Physical Exam Narrative: GENERAL: Averagely built and averagely nourished, HEENT:? No pallor or icterus. NECK: Mild JVD CARDIOVASCULAR SYSTEM: S1-S2 regular.? Tachycardia present; Grade 3 on 6 left l ower sternal border systolic murmur present RESPIRATORY SYSTEM: Coarse bilateral breath sounds, decreased at bases ABDOMEN: Soft, nontender and nondistended.? EXTREMITIES: Trace edema.? Extremities warm to touch. LICENSED CLINICAL SOCIAL WORKER: Patient is altered.? Response to her name by opening her eyes .? No other meaningful response Urinary Catheter Management: Perdue: Cath Placed During This Visit: yes Reason for Continuing Indwelling Catheter: Other Urinary Catheter Date of Insertion: 05/04/21 Urinary Catheter Time of Insertion: 11:10 Data : 05/08/21 05:11 05/08/21 05:11 A&P Assessment and plan (1) CHF exacerbation: Agree with IV diuretics -Excellent UO; -She remains well perfused peripherally, not behaving like low output state. I had a long discussion with patient's family and based on clinical progression the decision for further cardiac work-up will be made. -At this time patient prognosis remains guarded. Recommend placing her back on telemetry. -On BiPAP present -At this time is DNR/DNI. Status: Acute (2) Pleural effusion, bilateral: Status: Acute (3) Cardiomyopathy: Newly diagnosed Status: Acute (4) Acute encephalopathy: Secondary to PNA/UTI and ?hypernatremia -She remains well perfused peripherally, not behaving like low output state. Unclear etiology, COVID negative. Blood cx negative. -MRI with no stroke. -She is due to have LP today and was started on Keppra. Status: Acute (5) Pneumonia: Antibiotics as per primary team Status: Acute Qualifiers: Pneumonia type: due to unspecified organism Laterality: bilateral Lung location: lower lobe of lung Qualified Code(s): J18.9 - Pneumonia, unspecified organism Plan Hypernatremia : Nephrology on board, Moderate tricuspid valve regurgitation Mild to moderate mitral valve regurgitation Moderate pulmonary hypertension Left bundle branch block Elevated troponin in setting of decompensated congestive heart failure' Bilateral pulmonary embolism Hypokalemia: replaced Thank you for allowing me to participate in patient's care. Please feel free to call with questions or concerns. Attestations Medical Necessity Statement*: As per primary team Coding Level of Care Code Acute Construction Project Manager for [facility] Fwd Diagnoses CHF exacerbation I50.9 Pleural effusion, bilateral J90 Cardiomyopathy I42.9 Acute encephalopathy G93.40 Pneumonia J18.9 Pneumonia type: due to unspecified organism Laterality: bilateral Lung location: lower lobe of lung Time Spent (min) 20
[2021-05-08 17:08] LABS: CSF Mononuclear # 0.003 10^3/uL (50-90); Mononuclear WBC CSF % 75 % (50-90); Polynuclear Cells ,CSF # 0.001 10^3/uL (0-10); Polynuclear WBC CSF % 25 % (0-10); Red Blood Cell CSF 0 10^3/uL (0-0); White Blood Cell CSF 4 /uL (0-5)
[2021-05-08 17:21] LABS: Appearance CSF CLEAR (CLEAR); Color CSF OTHER (COLORLESS); Pathology Referral Yes
[2021-05-08 17:22] LABS: Glucose CSF 104 mg/dL (40-70); Total Protein CSF 53 mg/dL (15-45)
[2021-05-08] MEDS: dextrose 5% 1,000 ML 150 ML IV (17:28)
[2021-05-08] MEDS: levofloxacin-dextrose 5 % 750 MG/150 ML PREMIX 100 MG IV (21:04)
[2021-05-08 21:26] LABS: Cryptococcal Source Serum
[2021-05-09] VITALS (13 sets, daily range): BP systolic 107–133; BP diastolic 60–82; PULSE 90–126; RESP 14–32; TEMP 36.5–37.4; O2SAT 93–98
--- NOTE | 2021-05-09 | XR_ITS ---
WS: [id number] PORTABLE CHEST x 3 HISTORY: Post PICC placement. COMPARISON: 05/09/2021 First image, inserted PICC line extends superior into the jugular vein. Second image, inserted PICC line is within the RIGHT heart. Third image, inserted PICC line is at the distal SVC in good position. There is extensive bilateral pulmonary opacifications which have progressed. Increasing capping and d ensity at the apices. Probably bilateral layering pleural effusions. There is extensive pulmonary ronald ma. No pneumothorax identified. Cardiomegaly. XR/XR chest 1V portable [id number] IMPRESSION: 1. Right-sided PICC line with tip in distal SVC. 2. Progressive consolidations throughout both lungs most consistent with pulmo nary edema and/or pneumonia with increasing pleural effusions.
--- NOTE | 2021-05-09 | XR_ITS ---
WS: [id number] PORTABLE CHEST x 3 HISTORY: Post PICC placement. COMPARISON: 05/09/2021 First image, inserted PICC line extends superior into the jugular vein. Second image, inserted PICC line is within the RIGHT heart. Third image, inserted PICC line is at the distal SVC in good position. There is extensive bilateral pulmonary opacifications which have progressed. Increasing capping and d ensity at the apices. Probably bilateral layering pleural effusions. There is extensive pulmonary ronald ma. No pneumothorax identified. Cardiomegaly. XR/XR chest 1V portable [id number] IMPRESSION: 1. Right-sided PICC line with tip in distal SVC. 2. Progressive consolidations throughout both lungs most consistent with pulmo nary edema and/or pneumonia with increasing pleural effusions.
[2021-05-09] MEDS: dextrose 5% 1,000 ML 150 ML IV ×2 (01:04→07:50)
[2021-05-09 01:07] LABS: Anti-Cardiolipin IgA AB <2.0 APL-U/mL
[2021-05-09 05:57] LABS: Basophils % 0.3 %; Eosinophils # 0.5 10^3/uL (0.0-0.8); Eosinophils % 3.7 %; Hematocrit 41.3 % (37.0-47.0); Lymphocytes # 0.5 10^3/uL (0.8-4.8); Lymphocytes % 3.5 %; Mean Corpuscular HGB Conc 29.1 g/dL (30.0-36.0); Mean Corpuscular Hemoglobin 30.9 pg (28.0-34.0); Mean Corpuscular Volume 106.4 fl (81-99); Monocytes # 0.6 10^3/uL (0.2-0.9); Monocytes % 4.7 %; Neutrophils # 11.45 10^3/uL (1.8-7.7); Neutrophils % 86.1 %; Nucleated Red Blood Cells % 0.3 %; Platelet Count 152 10^3/cmm (130-400); Red Blood Count 3.88 10^6/uL (4.1-5.3); Red Cell Distribution Width 17.1 % (12.1-15.1); White Blood Count 13.3 10^3/uL (4.0-10.0)
[2021-05-09 06:13] LABS: Alanine Aminotransferase 17 U/L (0-33); Albumin Level 2.6 g/dL (3.5-5.2); Alkaline Phosphatase 92 IU/L (35-105); Anion Gap 12.2 (5-19); Aspartate Amino Transferase 20 U/L (0-32); Blood Urea Nitrogen 20 mg/dL (8-23); Calcium 7.5 mg/dL (8.5-10.5); Carbon Dioxide 28 mmol/L (22-29); Chloride 106 mmol/L (98-107); Globulin 2.6 g/dL (1.3-4.6); Glucose 141 mg/dL (65-115); Osmolality Calculated 301 mOsm/kg (285-295); Potassium 3.2 mmol/L (3.5-5.1); Sodium 143 mmol/L (136-145); Total Bilirubin 0.5 mg/dL (0.15-1.2); Total Protein 5.2 g/dL (6.6-8.7)
[2021-05-09 06:18] LABS: Beta 2 Glycoprotein IGA <2.0 U/mL (<20.0); Beta 2 Glycoprotein IGG <2.0 U/mL (<20.0); Beta 2 Glycoprotein IGM <2.0 U/mL (<20.0)
[2021-05-09 06:21] LABS: Procalcitonin 0.28 ng/mL (0-0.5)
[2021-05-09] MEDS: pantoprazole 40 mg SDV IVP (08:03)
--- NOTE | 2021-05-09 08:38 | P.PN_ITS ---
Subjective Subjective: This Morning patient is on 3 L cannula, she is opening her eyes to verbal command Moving her arms and legs Polyuria more than 3 L of urine output Diabetes insipidus? Creatinine and sodium improved Hypokalemia I will discontinue D5 which was increased to [address] Frye There is plan to put PICC line today and start TPN CSF studies not consistent with any signs of meningitis No signs of stroke As compared to yesterday she is a little more responsive today She has remained afebrile Leukocytosis stable Procalcitonin unremarkable Albumin 2.6 Diuretics were discontinued yesterday Patient looks dehydrated Vitals/I&O/Wt Last Vital Signs Temp 97.8 F 05/09/21 07:29 Pulse 105 H 05/09/21 07:56 Resp 18 05/09/21 07:56 BP 110/68 05/09/21 07:29 Pulse Ox 98 05/09/21 07:56 05/08/21 05/09/21 05/09/21 22:59 06:59 14:59 Intake Total 810 / 1920 1100 / 3020 1100 / 1100 Output Total 500 / 3500 Balance 810 / -1080 600 / -480 1100 / 1100 Weight last 48 hrs Weight 58.786 kg Weight 58.559 kg Physical Exam Narrative: Dehydrated malnourished early female Currently on 3 L nasal cannula Opens her eyes to verbal command Able to move her upper and lower extremities I do not see any focal deficits Sensory limited exam I did not see any cerebellar signs S1, S2 sinus tach Dehydrated Malnourished Soft abdomen No signs of edema Bilateral breath sounds without adventitious sounds She does use her abdominal muscles Urinary Catheter Management: Perdue: Cath Placed During This Visit: yes Reason for Continuing Indwelling Catheter: Other Urinary Catheter Date of Insertion: 05/04/21 Urinary Catheter Time of Insertion: 11:10 Data : 05/09/21 04:35 05/09/21 04:35 A&P Assessment and plan (1) Pulmonary embolism: Status: Acute (2) Hypernatremia: Status: Acute (3) Pulmonary edema: Status: Acute (4) CHF exacerbation: Status: Acute (5) Pleural effusion, bilateral: Status: Acute (6) Transaminitis: Status: Acute (7) Cardiomyopathy: Status: Acute (8) Abdominal tenderness: Status: Acute (9) Acute encephalopathy: Status: Acute (10) UTI (urinary tract infection): Status: Acute (11) Dehydration: Status: Acute (12) Recent weight loss: Status: Acute (13) Acute dehydration: Status: Acute (14) Pneumonia: Status: Acute Plan Systolic congestive heart failure exacerbation Poor EF Patient looks dehydrated today Lasix has been discontinued on 05/08 Polyuric with hypernatremia Diabetes insipidus? Hold on on diuretics for now Repeat chest x-ray today Currently on 3 L cannula Polyuria, hypernatremia, Urine sodium 108 Diabetes insipidus? will touchbase with nephro Pulmonary edema Repeat x-ray today Hold diuretics Dehydration with hypernatremia Sodium today 143 Discontinue D5 For caloric intake requested PICC line and PPN Metabolic encephalopathy Multifactorial related to dehydration, pneumonia, UTI Bilateral infiltrate on chest x-ray No signs of meningitis No signs of stroke CSF unremarkable Cultures are negative Patient is afebrile Leukocytosis stable Continue Keppra DNR/DNI Once patient is more awake we will advance her diet She is able to cough today, opening her eyes to verbal command Meanwhile we are planning to place PICC line for PPN Guarded prognosis Attestations Medical Necessity Statement*: Continue hospitalization Time Spent in Patient Care: 20min Coding Level of Care Code Acute High Density Finishing Operator for g Fwd Diagnoses Pulmonary embolism I26.99 Hypernatremia E87.0 Pulmonary edema J81.1 CHF exacerbation I50.9 Pleural effusion, bilateral J90 Transaminitis R74.01 Cardiomyopathy I42.9 Abdominal tenderness R10.819 Acute encephalopathy G93.40 UTI (urinary tract infection) N39.0 Dehydration E86.0 Recent weight loss R63.4 Acute dehydration E86.0 Pneumonia J18.9
--- NOTE | 2021-05-09 08:51 | XR_ITS ---
WS: [id number] Portable AP upright chest, 05/09/2021 Clinical Data: Pulmonary edema Comparison: Portable chest, 05/07/2021. Findings: The diffuse bilateral pulmonary opacifications have increased slightly compared to the prio r x-ray. The heart remains enlarged. There are probably bilateral effusions. No obvious nodules or ma sses are seen. There is an old lateral right third rib fracture. XR/XR chest 1V portable [id number] Impression: 1. Worsening bilateral pulmonary opacifications consistent with worsening pneum onia. 2. Cardiomegaly and pleural effusions.
[2021-05-09] MEDS: lidocaine 1% 5 ML in potassium chloride premix 100 ML 25 ML IV (09:44)
[2021-05-09] MEDS: piperacillin-tazobactam 3.375 GM in dextrose 5% (plus) 50 ML IV ×2 (09:50→17:29)
--- NOTE | 2021-05-09 11:02 | PM.PN ---
Subjective Subjective: She looks much brighter today with much improved cognition. Making a lot of urine, on D5w now held, diuretics now held. No edema and breathing comfortably on nasal cannula. Medications: Reviewed: Yes Vitals/I&O/Wt Last Vital Signs Temp 97.8 F 05/09/21 07:29 Pulse 105 H 05/09/21 07:56 Resp 18 05/09/21 07:56 BP 110/68 05/09/21 07:29 Pulse Ox 98 05/09/21 07:56 05/08/21 05/09/21 05/09/21 22:59 06:59 14:59 Intake Total 810 / 1920 1100 / 3020 1340 / 1340 Output Total 500 / 3500 Balance 810 / -1080 600 / -480 1340 / 1340 Weight last 48 hrs Weight 58.786 kg Weight 58.559 kg Physical Exam Narrative: Constitutional: Minimally interactive HEENT: Wet mucosa, no jvp, non icteric Lungs: Bilaterally clear without discernible wheeze, rales in all lung zones CVS: S1 S2, no murmurs Abdo: Soft, BS ok Ext 4: Minimal edema, peripheral perfusion with no cyanosis Neurological: Grossly non-focal Urinary Catheter Management: Perdue: Cath Placed During This Visit: yes Reason for Continuing Indwelling Catheter: Other Urinary Catheter Date of Insertion: 05/04/21 Urinary Catheter Time of Insertion: 11:10 Data : 05/09/21 04:35 05/09/21 04:35 Micro: Microbiology 05/07/21 16:00 Gram Stain - Final Cerebrospinal Fluid CSF Culture - Preliminary A&P Assessment and plan (1) Hypernatremia: 1. Hypernatremia Sodium 143, much improved D5w, diuretics now held K to be replaced 2. Renal function Creatinine looks great 3. Pneumonia Cultures so far negative, unrevealing, currently on Primaxin, vancomycin, Levaquin 4. Heart failure Cardiology input is appreciated, possible ischemic work-up down the road depending on how she does. Case discussed with family members at bedside, answering all of the questions to their satisfaction. Talat Fisher MD Nephrology [phone] Patient seen and examined via telemedicine, with the assistance of the bedside RN > 25 min spent in evaluation and mgmt of patient Status: Acute Attestations Medical Necessity Statement*: eval for hypernatremia Coding Level of Care Code Acute Metallic Yarn Slitting Machine Operator for Chg Fwd Diagnoses Hypernatremia E87.0
--- NOTE | 2021-05-09 11:14 | PC.SOCIAL ---
IMM Updated Updated pt's family on IMM. No questions voiced. Provided pt a copy. Initialed, dated, & timed copy in chart.
--- NOTE | 2021-05-09 12:13 | XR_ITS ---
WS: [id number] PORTABLE CHEST x 3 HISTORY: Post PICC placement. COMPARISON: 05/09/2021 First image, inserted PICC line extends superior into the jugular vein. Second image, inserted PICC line is within the RIGHT heart. Third image, inserted PICC line is at the distal SVC in good position. There is extensive bilateral pulmonary opacifications which have progressed. Increasing capping and d ensity at the apices. Probably bilateral layering pleural effusions. There is extensive pulmonary ronald ma. No pneumothorax identified. Cardiomegaly. XR/XR chest 1V portable [id number] IMPRESSION: 1. Right-sided PICC line with tip in distal SVC. 2. Progressive consolidations throughout both lungs most consistent with pulmo nary edema and/or pneumonia with increasing pleural effusions.
[2021-05-09 12:22] LABS: ANCA Screen NEGATIVE (NEGATIVE)
[2021-05-09 14:08] LABS: ABG PCO2 45.9 mmHg (35-45); ABG PH Result 7.49 (7.35-7.45); Alveolar-Arterial Oxygen Gradi 4.7 mmHg (5-10); Arterial Blood Gas Hematocrit 39.7 % (37-47); Blood Gas Allen Test Pos; Blood Gas Sample Type Arterial; Carboxyhemoglobin 1.8 %THgb (0.4-20.1); HCO3 ABG 34.7 mmol/L (22-26); HGB O2 Sat 91.9 % (95-100); Ionized Calcium Level - ABG 1.1 mmol/L (1.1-1.4); Methemoglobin 0.8 % (0.4-1.5); Oxygen Saturation ABG 94.4; PO2 ABG 57.2 mmHg (80.0-100.0); Potassium Level - ABG 3.3 mmol/L (3.5-5.0); Total Hemoglobin 12.9 g/dL (12-16)
[2021-05-09 14:38] LABS: Glomerular Bsmt Membrane IGG <1.0 AI
--- NOTE | 2021-05-09 19:45 | PM.PN ---
Subjective Subjective: Mental status has improved some. CXR with worsening consolidations. Medications: Reviewed: Yes Vitals/I&O/Wt Last Vital Signs Temp 98.9 F 05/09/21 15:16 Pulse 118 H 05/09/21 15:16 Resp 14 05/09/21 15:16 BP 133/82 05/09/21 15:16 Pulse Ox 94 05/09/21 15:16 05/09/21 05/09/21 05/09/21 06:59 14:59 22:59 Intake Total 1100 / 3020 1495 / 1495 Output Total 500 / 3500 700 / 700 Balance 600 / -480 1495 / 1495 -700 / 795 Weight last 48 hrs Weight 129 lb 9.6 oz Weight 129 lb 1.6 oz Physical Exam Narrative: GENERAL: Averagely built and averagely nourished, HEENT:? No pallor or icterus. NECK: Mild JVD CARDIOVASCULAR SYSTEM: S1-S2 regular.? Tachycardia present; Grade 3 on 6 left lower sternal border systolic murmur present RESPIRATORY SYSTEM: CTAB/L, decreased at bases ABDOMEN: Soft, nontender and nondistended.? EXTREMITIES: Trace edema.? Extremities warm to touch. EXCELLENCE CONSULTANT: Patient is altered.? Response to her name by opening her eyes .?Moving her extremities. Urinary Catheter Management: Perdue: Cath Placed During This Visit: yes Reason for Continuing Indwelling Catheter: Required Immobilization for Trauma or Surgery or Anesthesia Urinary Catheter Date of Insertion: 05/04/21 Urinary Catheter Time of Insertion: 11:10 Data : 05/09/21 04:35 05/09/21 04:35 Micro: Microbiology 05/07/21 16:00 Gram Stain - Final Cerebrospinal Fluid CSF Culture - Preliminary A&P Assessment and plan (1) CHF exacerbation: IV diuretics held -Excellent UO; -She remains well perfused peripherally, not behaving like low output state. I had a long discussion with patient's family and based on clinical progression the decision for further cardiac work-up will be made. -At this time patient prognosis remains guarded. Recommend placing her back on telemetry. -On BiPAP present -At this time is DNR/DNI. Patient will be seen once she improves Status: Acute (2) Pleural effusion, bilateral: Status: Acute (3) Cardiomyopathy: Newly diagnosed Status: Acute (4) Acute encephalopathy: Secondary to PNA/UTI and ?hypernatremia -She remains well perfused peripherally, not behaving like low output state. Unclear etiology, COVID negative. Blood cx negative. -MRI with no stroke. -No meningitis on LP. Status: Acute (5) Pneumonia: Antibiotics as per primary team Status: Acute Qualifiers: Pneumonia type: due to unspecified organism Laterality: bilateral Lung location: lower lobe of lung Qualified Code(s): J18.9 - Pneumonia, unspecified organism Plan Hypernatremia : Nephrology on board, Moderate tricuspid valve regurgitation Mild to moderate mitral valve regurgitation Moderate pulmonary hypertension Left bundle branch block Elevated troponin in setting of decompensated congestive heart failure' Bilateral pulmonary embolism Hypokalemia: replaced Thank you for allowing me to participate in patient's care. Please feel free to call with questions or concerns. Attestations Medical Necessity Statement*: As per primary team Coding Level of Care Code Acute Poultry Picking Machine Tender for [facility] Fwd Diagnoses CHF exacerbation I50.9 Pleural effusion, bilateral J90 Cardiomyopathy I42.9 Acute encephalopathy G93.40 Pneumonia J18.9 Pneumonia type: due to unspecified organism Laterality: bilateral Lung location: lower lobe of lung
[2021-05-09 19:58] LABS: Vancomycin Trough 18.6 ug/mL (10-15)
[2021-05-09] MEDS: AA-Dex 5%-20% w/Lytes 1,000 ML with multivitamin inj 10 ML 12 ML IV (21:55)
[2021-05-10] VITALS (12 sets, daily range): BP systolic 109–123; BP diastolic 69–82; PULSE 107–129; RESP 16–38; TEMP 36.2–37.3; O2SAT 92–98
[2021-05-10] MEDS: piperacillin-tazobactam 3.375 GM in dextrose 5% (plus) 50 ML IV ×3 (00:33→18:02)
[2021-05-10 05:00] LABS: Basophils % 0.3 %; Eosinophils # 0.1 10^3/uL (0.0-0.8); Eosinophils % 0.9 %; Hematocrit 42.5 % (37.0-47.0); Lymphocytes # 0.3 10^3/uL (0.8-4.8); Lymphocytes % 2.2 %; Mean Corpuscular HGB Conc 30.6 g/dL (30.0-36.0); Mean Corpuscular Hemoglobin 31.2 pg (28.0-34.0); Mean Corpuscular Volume 101.9 fl (81-99); Mean Platelet Volume 10.5 fL (7.4-10.4); Monocytes # 0.8 10^3/uL (0.2-0.9); Neutrophils # 13.63 10^3/uL (1.8-7.7); Neutrophils % 89.9 %; Nucleated Red Blood Cells % 0 %; Platelet Count 81 10^3/cmm (130-400); Red Blood Count 4.17 10^6/uL (4.1-5.3); Red Cell Distribution Width 16.7 % (12.1-15.1); White Blood Count 15.2 10^3/uL (4.0-10.0)
[2021-05-10 05:51] LABS: Slide Review Slide Review Perform
[2021-05-10 06:05] LABS: Blood Urea Nitrogen 19 mg/dL (8-23); Calcium 7.9 mg/dL (8.5-10.5); Carbon Dioxide 28 mmol/L (22-29); Chloride 107 mmol/L (98-107); Glucose 178 mg/dL (65-115); Osmolality Calculated 301 mOsm/kg (285-295); Sodium 142 mmol/L (136-145)
[2021-05-10 06:11] LABS: Anion Gap 11.2 (5-19); Potassium 4.2 mmol/L (3.5-5.1)
[2021-05-10] MEDS: FUROsemide 10 mg/mL SDV 10mL 60 MG IVP (08:16)
[2021-05-10] MEDS: pantoprazole 40 mg SDV IVP (08:16)
--- NOTE | 2021-05-10 09:22 | PM.PN ---
Subjective Subjective: This morning patient was obtunded when we switched from BiPAP to nasal cannula, she was able to open her eyes, drooling of saliva noted She is not able to hold her head straight As per the family her alertness was better yesterday as compared to today X-ray showing worsening of primary edema She is not pulling good tidal volume on BiPAP She was switched to AVAPS before I examined her in the morning Considering drooling of saliva and upper airway secretions BiPAP modality is not the best at this point TPN started yesterday Sodium 142 Afebrile Discontinue Keppra today Vitals/I&O/Wt Last Vital Signs Temp 98.5 F 05/10/21 07:38 Pulse 111 H 05/10/21 08:04 Resp 36 H 05/10/21 08:04 BP 121/82 05/10/21 07:38 Pulse Ox 98 05/10/21 08:04 05/09/21 05/10/21 05/10/21 22:59 06:59 14:59 Intake Total 50 / 1545 509.2 / 2054.2 Output Total 700 / 700 300 / 1000 Balance -650 / 845 209.2 / 1054.2 Weight last 48 hrs Weight 60.129 kg Weight 58.786 kg Physical Exam Narrative: Patient is still obtunded Not able to hold her head properly She is moving her extremities Drooling of saliva noted Extremely weak lethargic fatigued, dehydrated TPN running at the bedside She does blink her eyes to verbal command Family at the bedside S1, S2 tachycardia Currently on 3 L nasal cannula Abdomen soft Clinically does not look fluid overloaded Urinary Catheter Management: Perdue: Cath Placed During This Visit: yes Reason for Continuing Indwelling Catheter: Required Immobilization for Trauma or Surgery or Anesthesia Urinary Catheter Date of Insertion: 05/04/21 Urinary Catheter Time of Insertion: 11:10 Data : 05/10/21 04:35 05/10/21 05:39 Micro: Microbiology 05/07/21 16:00 Gram Stain - Final Cerebrospinal Fluid CSF Culture - Preliminary A&P Assessment and plan (1) Pulmonary embolism: Status: Acute (2) Hypernatremia: Status: Acute (3) Pulmonary edema: Status: Acute (4) CHF exacerbation: Status: Acute (5) Pleural effusion, bilateral: Status: Acute (6) Cardiomyopathy: Status: Acute (7) Acute encephalopathy: Status: Acute (8) UTI (urinary tract infection): Status: Acute (9) Dehydration: Status: Acute Plan Systolic congestive heart failure Pulmonary edema worsening Clinically does not look fluid overloaded Currently on 3 L nasal cannula Not an ideal candidate for BiPAP considering obtunded state, drooling of saliva Restart Lasix, 60 mg IV push cardiomyopathy: Angiogram once she is clinically stable Metabolic encephalopathy Some improvement noticed however she still not able to eat on her own, not able to communicate with the family No signs of meningitis, seizure or stroke Afebrile Leukocytosis noted Discontinue Keppra Dehydration related hyponatremia: Resolved Acute thrombocytopenia Patient has been getting Lovenox for her PE Monitor platelet count for now DNR/DNI PICC line placed, TPN started 05/09 Guarded prognosis Family might lean towards comfort measure Appreciate nephro and cardiology recommendations Attestations Medical Necessity Statement*: Guarded prognosis, continue hospitalization Time Spent in Patient Care: 30min Coding Level of Care Code Acute Assistant Community Manager for g Fwd Diagnoses Pulmonary embolism I26.99 Hypernatremia E87.0 Pulmonary edema J81.1 CHF exacerbation I50.9 Pleural effusion, bilateral J90 Cardiomyopathy I42.9 Acute encephalopathy G93.40 UTI (urinary tract infection) N39.0 Dehydration E86.0
[2021-05-10] MEDS: enoxaparin 60 mg/0.6 mL Syringe SUBCUT (18:03)
[2021-05-10 18:37] LABS: Histoplasma Antigen (Quant) NONE DETECTED; Histoplasma Antigen Interpreta NEGATIVE; Histoplasma Antigen Specimen URINE
[2021-05-10] MEDS: AA-Dex 5%-20% w/Lytes 1,000 ML with multivitamin inj 10 ML 42 ML IV (22:39)
[2021-05-11] VITALS (14 sets, daily range): BP systolic 106–135; BP diastolic 66–89; PULSE 96–168; RESP 16–29; TEMP 36.3–37.8; O2SAT 91–99
[2021-05-11] MEDS: piperacillin-tazobactam 3.375 GM in dextrose 5% (plus) 50 ML IV ×3 (01:25→17:43)
[2021-05-11] MEDS: FUROsemide 10 mg/mL SDV 2mL 20 MG IVP (01:42)
--- NOTE | 2021-05-11 02:07 | PC.NURSE ---
Upon entering patient's room, patient has noticeable tachypnea and appears to be in respiratory distress. This nurse had previous nurse, RICKEY García come to observe the patient to determine if respiratory rate was new. Patient had not previously been in any distress. Patient's respirations are labored and uneven with use of abdominal muscle. Vital signs were obtained. ICU residential monitor called and stated that the patient's heart rate has slowly been increasing and had reached 140s. Dr. Weinstein was notified of distress and vital signs. Patient was orally suctioned and cleared a huge bloody mucous plug, bigger than a quarter. Patient is passing air slightly better but still has labored breathing and increased heart rate.
[2021-05-11] MEDS: lanolin oint 7 gm 1 APPLIC TOPICAL (02:52)
[2021-05-11 05:02] LABS: Basophils # 0.1 10^3/uL (0.0-0.1); Basophils % 0.5 %; Eosinophils # 0.4 10^3/uL (0.0-0.8); Eosinophils % 2.3 %; Hematocrit 44.1 % (37.0-47.0); Hemoglobin 13.2 g/dL (11.5-15.3); Lymphocytes # 0.2 10^3/uL (0.8-4.8); Lymphocytes % 1.5 %; Mean Corpuscular HGB Conc 29.9 g/dL (30.0-36.0); Mean Corpuscular Volume 103.5 fl (81-99); Mean Platelet Volume 10.1 fL (7.4-10.4); Monocytes # 0.8 10^3/uL (0.2-0.9); Monocytes % 5.1 %; Neutrophils # 13.83 10^3/uL (1.8-7.7); Neutrophils % 89.6 %; Nucleated Red Blood Cells % 0 %; Platelet Count 71 10^3/cmm (130-400); Red Blood Count 4.26 10^6/uL (4.1-5.3); White Blood Count 15.4 10^3/uL (4.0-10.0)
[2021-05-11] MEDS: enoxaparin 60 mg/0.6 mL Syringe SUBCUT ×2 (05:06→17:43)
[2021-05-11 05:19] LABS: Blood Urea Nitrogen 24 mg/dL (8-23); Calcium 7.1 mg/dL (8.5-10.5); Carbon Dioxide 36 mmol/L (22-29); Chloride 105 mmol/L (98-107); Glucose 199 mg/dL (65-115); Osmolality Calculated 314 mOsm/kg (285-295); Sodium 147 mmol/L (136-145)
[2021-05-11 05:21] LABS: Anion Gap 9.1 (5-19); Potassium 3.1 mmol/L (3.5-5.1)
[2021-05-11] MEDS: pantoprazole 40 mg SDV IVP (08:17)
--- NOTE | 2021-05-11 08:37 | XRR_ITS ---
PROCEDURE INFORMATION: Exam: XR Chest Exam date and time: 05/11/2021 8:37 AM Age: 76 years old Clinical indication: Condition or disease; Lung condition and disease; Pulmonary edema; Status not specified; Patient HX: Pulmonary edema w picc in place; Additional info: Pulm oedema , hypoxia TECHNIQUE: Imaging protocol: XR of the chest. Views: 1 view. COMPARISON: CR XR chest 1V portable [id number] 05/09/2021 12:42 PM FINDINGS: Tubes, catheters and devices: There is a right arm PICC with the tip in the superior vena cava. Lungs: Bilateral airspace disease with a pulmonary edema pattern. This has improved in the interval. Left lower lobe consolidation which could be due to dependent pulmonary edema and/or dense atelectasis. Lesser degree of atelectasis in the right lung base. Pleural spaces: Bilateral pleural effusions extending over the lung apices, not significantly changed. No pneumothorax. Heart/Mediastinum: Borderline enlargement of the cardiac silhouette. Vasculature: The aorta is atherosclerotic. Bones/joints: No acute osseous abnormality. XR/XR chest 1V portable [id number] IMPRESSION: Improvement in pulmonary edema.
--- NOTE | 2021-05-11 09:45 | PC.SOCIAL ---
IMM update IMM updated with and daughter at bedside. Copy Pg 2 provided. Verbalized an understanding. Initialled, dated, timed, and placed in chart.
[2021-05-11] MEDS: AA-Dex 5%-20% w/Lytes 1,000 ML with multivitamin inj 10 ML 42 ML IV (10:41)
--- NOTE | 2021-05-11 11:04 | PM.PN ---
Subjective Subjective: Today sodium is 140s and asked nurse to continue TPN Patient is afebrile Not opening eyes to painful stimuli Dark currant jelly sputum suctioned which has been sent for sampling White count 15,000 Hypokalemia noted Creatinine 0.9 Urine output 1800 mL Discussed with the family, they would like to see her response in next 24 hours with TPN and if there is no meaningful recovery they might lean towards comfort measures Vitals/I&O/Wt Last Vital Signs Temp 98 F 05/11/21 10:58 Pulse 131 H 05/11/21 10:58 Resp 16 05/11/21 10:58 BP 127/83 05/11/21 10:58 Pulse Ox 98 05/11/21 10:58 05/10/21 05/11/21 05/11/21 22:59 06:59 14:59 Intake Total 626.967 / 942.767 750 / 1692.767 566 / 566 Output Total 700 / 1800 Balance -73.033 / -857.233 750 / -107.233 566 / 566 Weight last 48 hrs Weight 60.6 kg Weight 60.129 kg Physical Exam Narrative: Patient is attended Agonal breathing Not responding to painful stimuli A. fib RVR Soft abdomen No signs of edema of legs Yellow-colored urine in the bag Neuro exam limited Bilateral breath sounds with rhonchi and crackles Urinary Catheter Management: Perdue: Cath Placed During This Visit: yes Reason for Continuing Indwelling Catheter: Accurate Measurement of Urinary Output in Critically Ill Patients Urinary Catheter Date of Insertion: 05/04/21 Urinary Catheter Time of Insertion: 11:10 Data : 05/11/21 04:20 05/11/21 04:20 Micro: Microbiology 05/07/21 16:00 Gram Stain - Final Cerebrospinal Fluid CSF Culture - Final A&P Assessment and plan (1) Pulmonary embolism: Status: Acute (2) Hypernatremia: Status: Acute (3) Pulmonary edema: Status: Acute (4) CHF exacerbation: Status: Acute (5) Pleural effusion, bilateral: Status: Acute (6) Cardiomyopathy: Status: Acute (7) Cardiomegaly: Status: Acute (8) Acute encephalopathy: Status: Acute (9) UTI (urinary tract infection): Status: Acute (10) Pneumonia: Status: Acute Plan TPN has been initiated patient is obtunded, with poor GCS scale, not an ideal candidate for BiPAP considering current jelly sputum production Sample has been sent Afebrile Continue antibiotics Hypernatremia noted again, for now I am not adding D5, plan is to continue TPN Hypokalemia: Repleted Continue therapeutic Lovenox for PE Add low-dose metoprolol for A. fib RVR DNR/DNI Guarded prognosis Attestations Medical Necessity Statement*: Continue hospitalization Time Spent in Patient Care: 25min Coding Level of Care Code Acute Motorbike Courier for Chg Fwd Diagnoses Pulmonary embolism I26.99 Hypernatremia E87.0 Pulmonary edema J81.1 CHF exacerbation I50.9 Pleural effusion, bilateral J90 Cardiomyopathy I42.9 Cardiomegaly I51.7 Acute encephalopathy G93.40 UTI (urinary tract infection) N39.0 Pneumonia J18.9
[2021-05-11] MEDS: potassium chloride premix 100 ML 25 MEQ IV (11:48)
[2021-05-11] MEDS: metoprolol tartrate 1 mg/1 mL SDV 5 mL 5 MG IVP ×2 (15:22→21:59)
[2021-05-12] VITALS (11 sets, daily range): BP systolic 100–121; BP diastolic 64–77; PULSE 96–119; RESP 16–22; TEMP 36.4–37.1; O2SAT 95–98
[2021-05-12] MEDS: piperacillin-tazobactam 3.375 GM in dextrose 5% (plus) 50 ML IV ×3 (00:32→17:57)
[2021-05-12] MEDS: metoprolol tartrate 1 mg/1 mL SDV 5 mL 5 MG IVP ×3 (03:53→20:45)
[2021-05-12 05:31] LABS: Basophils # 0.1 10^3/uL (0.0-0.1); Basophils % 0.4 %; Eosinophils # 0.1 10^3/uL (0.0-0.8); Eosinophils % 1.1 %; Hematocrit 40.1 % (37.0-47.0); Hemoglobin 11.8 g/dL (11.5-15.3); Lymphocytes # 0.4 10^3/uL (0.8-4.8); Mean Corpuscular HGB Conc 29.4 g/dL (30.0-36.0); Mean Corpuscular Volume 105.2 fl (81-99); Monocytes # 0.8 10^3/uL (0.2-0.9); Monocytes % 6.5 %; Neutrophils % 87.9 %; Nucleated Red Blood Cells % 0 %; Platelet Count 54 10^3/cmm (130-400); Red Blood Count 3.81 10^6/uL (4.1-5.3); Red Cell Distribution Width 16.7 % (12.1-15.1)
[2021-05-12 05:50] LABS: Anion Gap 6.9 (5-19); Blood Urea Nitrogen 37 mg/dL (8-23); Calcium 7.8 mg/dL (8.5-10.5); Carbon Dioxide 38 mmol/L (22-29); Chloride 106 mmol/L (98-107); Glucose 157 mg/dL (65-115); Osmolality Calculated 316 mOsm/kg (285-295); Potassium 3.9 mmol/L (3.5-5.1); Sodium 147 mmol/L (136-145)
[2021-05-12] MEDS: enoxaparin 60 mg/0.6 mL Syringe SUBCUT ×2 (05:50→17:57)
[2021-05-12] MEDS: pantoprazole 40 mg SDV IVP (08:31)
[2021-05-12] MEDS: AA-Dex 5%-20% w/Lytes 1,000 ML with multivitamin inj 10 ML 42 ML IV (12:12)
--- NOTE | 2021-05-12 12:26 | P.PN_ITS ---
Subjective Subjective: Patient is opening her eyes, able to move her neck however not able to communicate or eat on her own Family at the bedside Received multiple dose of IV metoprolol for tachycardia overnight Vitals/I&O/Wt Last Vital Signs Temp 97.6 F 05/12/21 11:24 Pulse 112 H 05/12/21 11:24 Resp 22 H 05/12/21 11:24 BP 104/71 05/12/21 11:24 Pulse Ox 95 05/12/21 11:24 05/11/21 05/12/21 05/12/21 21:59 06:59 14:59 Intake Total 1010 / 1010 Output Total Balance 1010 / 1010 Weight last 48 hrs Weight 59.466 kg Weight 60.6 kg Physical Exam Narrative: Denies to verbal command Moving her neck Not moving her legs or arm on verbal command PICC line with TPN Abdomen soft Bilateral breath sounds with rhonchi Dehydrated Perdue catheter draining yellow-colored urine TPN running at the bedside Family at the bedside S1, S2 sinus tachycardia Urinary Catheter Management: Perdue: Cath Placed During This Visit: yes Reason for Continuing Indwelling Catheter: Other Urinary Catheter Date of Insertion: 05/04/21 Urinary Catheter Time of Insertion: 11:10 Data : 05/12/21 05:15 05/12/21 05:15 Micro: Microbiology 05/11/21 10:00 Gram Stain - Final Sputum - Expectorated Sputum Sputum Culture - Preliminary 05/07/21 16:00 Gram Stain - Final Cerebrospinal Fluid CSF Culture - Final A&P Assessment and plan (1) Pulmonary embolism: Status: Acute (2) Hypernatremia: Status: Acute (3) Pulmonary edema: Status: Acute (4) CHF exacerbation: Status: Acute (5) Pleural effusion, bilateral: Status: Acute (6) Transaminitis: Status: Acute (7) Cardiomyopathy: Status: Acute (8) Cardiomegaly: Status: Acute (9) Abdominal tenderness: Status: Acute (10) Acute encephalopathy: Status: Acute (11) Acute dehydration: Status: Acute (12) Tachycardia: Status: Acute Plan Encephalopathy related to UTI and dehydration Pulmonary edema improving Avoiding BiPAP because of productive cough Sputum culture awaiting results Continue broad-spectrum antibiotics Dehydration: Hypernatremia Continue TPN running at optimal rate Patient is able to open her eyes move her neck Very deconditioned lethargic Fatigue BiPAP is contraindicated Gentle diuresis DNR/DNI Family stating towards comfort care if there is no significant improvement by Thursday N.p.o. PE: Therapeutic Lovenox Sinus tachycardia: Requiring IV metoprolol Attestations Medical Necessity Statement*: Guarded prognosis, continue hospitalization Time Spent in Patient Care: 20min Coding Level of Care Code Acute Registered Nurse Step Down for Chg Fwd Diagnoses Pulmonary embolism I26.99 Hypernatremia E87.0 Pulmonary edema J81.1 CHF exacerbation I50.9 Pleural effusion, bilateral J90 Transaminitis R74.01 Cardiomyopathy I42.9 Cardiomegaly I51.7 Abdominal tenderness R10.819 Acute encephalopathy G93.40 Acute dehydration E86.0 Tachycardia R00.0
--- NOTE | 2021-05-12 13:50 | XRR_ITS ---
PROCEDURE INFORMATION: Exam: XR Chest Exam date and time: 05/12/2021 1:50 PM Age: 76 years old Clinical indication: Device placement; Other: Picc line; Additional info: Verify picc placement TECHNIQUE: Imaging protocol: XR of the chest. Views: 1 view. COMPARISON: CR XR chest 1V portable [id number] 05/11/2021 1:20 PM FINDINGS: Lungs: Diffuse left perihilar vascular congestion this finding has decreased since prior. There is interstitial congestion in the right lower lobe stable since prior No consolidation. Pleural spaces: Bilateral lower lobe pleural effusion. No pneumothorax. Heart/Mediastinum: Unremarkable. No cardiomegaly. Bones/joints: Unremarkable. A right side PICC line is in place extending into the SVC. XR/XR chest 1V portable [id number] IMPRESSION: 1. Stable bilateral pleural effusions. 2. Vascular and interstitial congestion left perihilar region decreased since prior 3. A right side PICC line extends into the SVC.
[2021-05-12 18:59] LABS: Vancomycin Trough 19.8 ug/mL (10-15)
[2021-05-13] VITALS (11 sets, daily range): BP systolic 65–137; BP diastolic 34–78; PULSE 63–122; RESP 16–30; TEMP 36.1–37.3; O2SAT 62–98
[2021-05-13] MEDS: piperacillin-tazobactam 3.375 GM in dextrose 5% (plus) 50 ML IV ×3 (00:55→18:00)
[2021-05-13] MEDS: metoprolol tartrate 1 mg/1 mL SDV 5 mL 5 MG IVP ×2 (02:10→06:29)
[2021-05-13 03:06] LABS: Basophils # 0.1 10^3/uL (0.0-0.1); Basophils % 0.6 %; Eosinophils # 0.3 10^3/uL (0.0-0.8); Eosinophils % 1.6 %; Hematocrit 42.5 % (37.0-47.0); Hemoglobin 12.3 g/dL (11.5-15.3); Lymphocytes # 0.6 10^3/uL (0.8-4.8); Lymphocytes % 3.8 %; Mean Corpuscular HGB Conc 28.9 g/dL (30.0-36.0); Mean Corpuscular Volume 107.1 fl (81-99); Mean Platelet Volume 11.2 fL (7.4-10.4); Monocytes # 1.2 10^3/uL (0.2-0.9); Monocytes % 7.4 %; Neutrophils # 13.79 10^3/uL (1.8-7.7); Neutrophils % 85.9 %; Nucleated Red Blood Cells % 0 %; Platelet Count 88 10^3/cmm (130-400); Red Blood Count 3.97 10^6/uL (4.1-5.3); White Blood Count 16.1 10^3/uL (4.0-10.0)
[2021-05-13 03:32] LABS: Anion Gap 12.5 (5-19); Blood Urea Nitrogen 47 mg/dL (8-23); Calcium 8.2 mg/dL (8.5-10.5); Carbon Dioxide 31 mmol/L (22-29); Chloride 106 mmol/L (98-107); Glucose 176 mg/dL (65-115); Osmolality Calculated 317 mOsm/kg (285-295); Potassium 4.5 mmol/L (3.5-5.1); Sodium 145 mmol/L (136-145)
[2021-05-13] MEDS: enoxaparin 60 mg/0.6 mL Syringe SUBCUT ×2 (05:09→17:58)
[2021-05-13] MEDS: acetaminophen 650 mg Supp PR (05:10)
--- NOTE | 2021-05-13 10:10 | PC.CHAP ---
Pastoral Care Encounter/Spiritual Assessment Type of Contact [] Declined data network architect visit [] Patient/Family/Request visit [] Outpatient visit [] Follow-up visit [] Physician referral [] Code/Alert [x] Routine visit [] Staff referral [] Actively dying [] Patient sleeping [] Family support [] [] Out of room [] Palliative care [] [] Receiving care in room [] Pre-surgical visit [] Trauma [] Long length of stay [] ICU visit [] Other: Relational/Emotional Strength [x] Patient feels connected with others/family/visitors/staff [] Distress [] Loneliness/isolation [] Abandonment Spirituality of Patient [x] Person of Ragini [] Attends Oriental Orthodox of their Ragini [x] Believes in Prayer [] Reads Bible or Adventist materials [] There are Spiritual issues to be addressed Collection Team Lead Interventions [x] Prayer [] Active listening [] Non-anxious presence [] Spiritual/emotional support [] Crisis/trauma care [] Spiritual counseling [] Bereavement support [] Provided bereavement packet [] Provided Bible/devotional materials [] Provided toy/stuffed animal, coloring book to patient or family member [] Provided Communion [] Anointing/Snow [] Salvation [x] Completed spiritual assessment [] Other: Impact on Illness or Injury [] Angry [] Fearful [] Anxious [] Often cries [] Exhaustion [] Unable to work [] Unable to attend caodaism [] Unable to walk/stand [] Unable to read [] Unable to drive [] Unable to eat/drink [] Unable to sleep [] Unable to be with family [] Patient intubated [] Other: Summary patient very week Time spent with patient 10 min
[2021-05-13] MEDS: pantoprazole 40 mg SDV IVP (10:58)
--- NOTE | 2021-05-13 11:02 | PC.NURSE ---
I reported the low 02 level to the nurse 83%
--- NOTE | 2021-05-13 13:00 | P.PN_ITS ---
Subjective Subjective: Patient is still obtunded not able to reciprocate, nonverbal Dehydrated Cultures negative Afebrile Spoke with her daughter and her , they are leaning towards initiating comfort care once she is [facility] the [facility] Vitals/I&O/Wt Last Vital Signs Temp 97.4 F L 05/13/21 11:02 Pulse 96 05/13/21 11:02 Resp 24 H 05/13/21 11:02 BP 107/70 05/13/21 11:02 Pulse Ox 93 05/13/21 11:02 05/12/21 05/13/21 05/13/21 22:59 06:59 14:59 Intake Total 290 / 1475 60 / 1535 Output Total 250 / 400 300 / 700 Balance 40 / 1075 -240 / 835 Weight last 48 hrs Weight 59.511 kg Weight 59.466 kg Physical Exam Narrative: Patient is obtunded Non verbal Not this morning to painful stimuli Clinically dehydrated Agonal breathing 2 L nasal cannula Abdomen soft No signs of edema of legs Right arm PICC line Urinary Catheter Management: Perdue: Cath Placed During This Visit: yes Reason for Continuing Indwelling Catheter: Other Urinary Catheter Date of Insertion: 05/04/21 Urinary Catheter Time of Insertion: 11:10 Data : 05/13/21 02:50 05/13/21 02:50 Micro: Microbiology 05/11/21 10:00 Gram Stain - Final Sputum - Expectorated Sputum Sputum Culture - Final A&P Assessment and plan (1) Pulmonary embolism: Status: Acute (2) Hypernatremia: Status: Acute (3) Pulmonary edema: Status: Acute (4) CHF exacerbation: Status: Acute (5) Pleural effusion, bilateral: Status: Acute (6) Cardiomyopathy: Status: Acute (7) Cardiomegaly: Status: Acute (8) UTI (urinary tract infection): Status: Acute (9) Pulmonary emboli: Status: Acute (10) Dehydration: Status: Acute Plan Patient is obtunded No meaningful recovery Family seem to leaning towards initiating comfort care after she is at a penitentiary for now continue IV antibiotics Continue TPN Guarded prognosis Conducted 2 family meetings analysis manager updated Attestations Medical Necessity Statement*: Awaiting penitentiary placement Time Spent in Patient Care: 20min Coding Level of Care Code Acute Clinic Specialist for [place] Wei Diagnoses Pulmonary embolism I26.99 Hypernatremia E87.0 Pulmonary edema J81.1 CHF exacerbation I50.9 Pleural effusion, bilateral J90 Cardiomyopathy I42.9 Cardiomegaly I51.7 UTI (urinary tract infection) N39.0 Pulmonary emboli I26.99 Dehydration E86.0
--- NOTE | 2021-05-13 13:33 | PC.SOCIAL ---
IMM Updated Updated family on IMM. No questions voiced. Provided pt's family a copy. Initialed, dated, & timed copy in chart.
[2021-05-13] MEDS: AA-Dex 5%-20% w/Lytes 1,000 ML with multivitamin inj 10 ML 42 ML IV (16:10)
[2021-05-13] MEDS: morphine 4 mg/mL SDV 1 mL 2 MG IVP (18:00)
--- NOTE | 2021-05-13 23:32 | PC.NURSE ---
2325 Turned pt to left side. Small smear BM noted. Pericare given. Pillows used to pad bony prominences. Pt VS dropped with turn. Pt is comfort care to be discharge to hospice in am.
[2021-05-14] MEDS: piperacillin-tazobactam 3.375 GM in dextrose 5% (plus) 50 ML IV (00:16)
--- NOTE | 2021-05-14 01:33 | PC.NURSE ---
0055 To room when telemetry shows heart rate 32. Pt having agonal resp. mottling noted to chest and left side/back.
--- NOTE | 2021-05-14 01:34 | PC.NURSE ---
0057 Telemetry reads asystole. No heart beat auscultated. TOD 0057.
--- NOTE | 2021-05-14 01:35 | PC.NURSE ---
0059 Dr Whelan notified of TOD 0057 verified by myself and Avis scott RN.
--- NOTE | 2021-05-14 01:36 | PC.NURSE ---
0102 Called pt to notify of pt . He voices understanding and instructs to release to [facility] in [place], [place].
--- NOTE | 2021-05-14 01:37 | PC.NURSE ---
0105 [facility] notified of pt . Spoke with Ciarra. Reports pt is not a candidate for donation.
--- NOTE | 2021-05-14 01:38 | PC.NURSE ---
0115 Post mortum care done. PICC line and blancas cath removed. Pericare done to remove incontinent stool. 6 rings removed and placed in cup with pt. Notified that the rings will be sent to home with pt.
--- NOTE | 2021-05-14 03:16 | PC.NURSE ---
[id number] [facility] staff here to take pt to home. Rings sent with pt.
[2021-05-15 18:03] LABS: MTB Complex Respiratory PCR NOT DETECTED; MTB Source SPUTUM
--- NOTE | 2021-05-16 19:04 | PM.DDS ---
Discharge Providers DDS Date of Admission: 04/30/21 13:24 Date Summary Completed: 05/16/21 Attending Provider at Admission: Binu Barriga Time of : 00:57 Attending Provider at Discharge: Guido Wagner MD Primary Care Provider: ZACK Sanders DS Diagnoses Hospital Diagnoses (1) Pulmonary embolism: (2) Hypernatremia: (3) Pulmonary edema: (4) CHF exacerbation: (5) Pleural effusion, bilateral: (6) Cardiomyopathy: (7) Cardiomegaly: (8) UTI (urinary tract infection): (9) Pulmonary emboli: (10) Dehydration: Reason for Visit Reason for Visit Loseing weight, cant keep anything down Summary Date and Time of Date of : 05/14/21 Time of : 00:57 Summary Summary: Admitted on 04/29 for metabolic encephalopathy related to pneumonia, she was diagnosed with acute pulmonary embolism at the time of admission, she was started on therapeutic Lovenox, & for UTI she was given cephalosporins. Patient went into pulmonary edema due to systolic congestive heart failure exacerbation, echo showed poor ejection fraction, cardiology was consulted, however because of her worsening clinical status coronary angiogram was put on hold. Her mentation did not improve at all, abdominal imaging did not show acute pathological findings, abnormal transaminases improved, MRI head did not show any acute stroke, lumbar puncture ruled out meningitis. She became dehydrated and hypernatremic. Required IV fluid. Eventually PICC line was placed and TPN started. Her metabolic encephalopathy did not improve significantly however she was able to open eyes and look at her family members intermittently, she was not able to follow commands, she would not communicate or eat on her own. She remained afebrile. Family was leaning towards comfort measures, unfortunately patient on 05/14 56, Additional Data Advance directives?: No Discharge Plan Discharge Patient Disposition: Condition: Stable DS Attestations Time Spent in /Discharge Care*: less than 30 min Quality - AMI: AMI present?: No Quality - Stroke: CVA present?: No Symptom Onset Unknown: No Quality - VTE: VTE present?: No Deep Vein Thrombosis/Pulmonary Embolism Present on Admission: No Coding Level of Care Code Acute Service Desk Associate for [facility] Fwd Diagnoses Pulmonary embolism I26.99 Hypernatremia E87.0 Pulmonary edema J81.1 CHF exacerbation I50.9 Pleural effusion, bilateral J90 Cardiomyopathy I42.9 Cardiomegaly I51.7 UTI (urinary tract infection) N39.0 Pulmonary emboli I26.99 Dehydration E86.0
[2021-05-17 17:33] LABS: Blood Gas Operator Identificat CK
== END 2021-05-14 03:15 | disposition expired | DRG 175 ==
LOC: ER 15:47 → MEDSURG 16:54
PROVIDERS: Internal Medicine Nephrology; Admitting Provider Internal Medicine; Emergency Provider Emergency Medicine; PCP Nurse Practitioner; Visit Provider Internal Medicine
DX: I26.99 Other pulmonary embolism without acute cor pulmonale (principal); J18.9 Pneumonia, unspecified organism; G93.41 Metabolic encephalopathy; I50.21 Acute systolic (congestive) heart failure; J96.02 Acute respiratory failure with hypercapnia; J96.01 Acute respiratory failure with hypoxia; N39.0 Urinary tract infection, site not specified; R18.8 Other ascites; N17.9 Acute kidney failure, unspecified; E87.0 Hyperosmolality and hypernatremia; I42.9 Cardiomyopathy, unspecified; Z86.16 Personal history of COVID-19; E86.0 Dehydration; K44.9 Diaphragmatic hernia without obstruction or gangrene; K57.90 Diverticulosis of intestine, part unspecified, without perforation or abscess without bleeding; I44.7 Left bundle-branch block, unspecified; I27.20 Pulmonary hypertension, unspecified; I08.1 Rheumatic disorders of both mitral and tricuspid valves; Z66 Do not resuscitate; E87.5 Hyperkalemia
CPT/HCPCS: 36415; 36569; 36592; 36600; 51702; 62328; 70450; 70551; 71045; 71275; 74174; 74176; 76705; 78226; 80048; 80051; 80053; 80074; 80202; 80500; 81001; 82140; 82330; 82436; 82570; 82803; 82805; 82945; 82977; 83516; 83520; 83605; 83690; 84132; 84145; 84146; 84157; 84300; 84443; 84484; 84550; 85025; 85613; 85730; 86038; 86140; 86146; 86147; 86225; 86235; 86403; 87040; 87070; 87075; 87086; 87205; 87385; 87449; 87556; 87631; 87635; 87641; 87806; 89050; 92523; 92524; 92526; 92610; 93005; 93306; 94640; 94660; 94664; 96365; 96366; 96367; 96372; 97110; 97161; 97530; 99285; A9537; C1751; C9113; G0378; J0456; J0637; J0692; J0743; J1630; J1650; J1815; J1940; J1953; J1956; J2270; J2405; J2543; J3370; J3480; J3490; J7030; J7050; J7611; J7799; Q3014; Q9967